=== PATIENT | female | born 1980 | race Caucasian/White ===

== ENCOUNTER 2019-11-15 09:00 | Emergency (ER) | payer OTHER, SELFPAY ==
[2019-11-15 09:03] VITALS: BP 147/77; PULSE 86; RESP 22; TEMP 36.8; O2SAT 98; BMI 32.3
--- NOTE | 2019-11-15 09:18 | ED_ITS ---
Entered by Mahendra Stewart, acting as scribe for HPI - Chest Pain General: Chief Complaint: Chest Pain Stated Complaint: chest pain Time Seen by Provider: 11/15/19 10:04 History of Present Illness: HPI narrative: 39 yo female presents with complaints of a violent cough and chest pain that began today. Family states patient has had an intermittent cough over the past month but states nothing has ever been this severe. Reports she will cough so hard that she turns red and feels like she is going to vomit. Patient is not running fevers. She occasionally will cough up a yellow sometimes blood-tinged sputum. Patient has no previous pulmonary or cardiac history. Associated symptoms: Reports dyspnea; Deny abdominal pain, fever(s), nausea, palpitations, syncope or vomiting Review of Systems Const: Denies: fever, chills, body aches or fatigue Eyes: Denies: change in vision, blurry vision, photophobia, eye discomfort or eye discharge ENMT: Denies: throat pain, enlarged tonsils, painful swallowing, swelling of lips/tongue, oral sores/lesions, ear pain, ear discharge, nasal discharge, nasal congestion, post nasal drip or facial/sinus pain Card: Reports: chest pain; Denies: palpitations, irregular heart rhythm, edema, swelling of feet/ankles, lightheadedness, syncope, pre-syncope or shortness of breath when lying down Resp: Reports: shortness of breath, productive cough, pain on inspiration and chest congestion; Denies: non-productive cough, wheezing, stridor or coughing up blood GI: Denies: abdominal pain, nausea or vomiting Musc: Denies: neck pain or back pain Skin/Breast: Denies: rash Neuro: Denies: headache, numbness in extremities, weakness in extremities or changes in sensation All/Imm: Denies: facial swelling or seasonal allergies PFSH ED PFSH: Statuses (acute, chronic, etc) shown below reflect problem list status as previously entered and may not be historically accurate Social History Smoking and tobacco status: current every day smoker Female Reproductive History: Date of last menstrual period: 10/18/19 Physical Exam 2 Const: COMMON NORMALS: no apparent distress, oriented x3, no limitations, healthy appearing, alert and well nourished HENMT: COMMON NORMALS: normocephalic and head/scalp atraumatic HEAD & SCALP: normocephalic and atraumatic Eye: COMMON NORMALS: PERRL and EOMs intact bilaterally PUPIL: Yes PERRL Neck/C-Spine: COMMON NORMALS: full ROM, no lymphadenopathy, supple and no meningeal signs Chest: COMMONS NORMALS: inspection of chest normal Resp: COMMON NORMALS: normal respiratory effort and clear to auscultation bilaterally AUSCULTATION: clear to auscultation bilaterally OTHER: forceful sounding cough Cardio: COMMON NORMALS: regular rate and regular rhythm RATE: regular rate RHYTHM: regular rhythm GI: COMMON NORMALS: normal to inspection, nondistended, normoactive bowel sounds, soft to palpation, non-tender, no hepatosplenomegaly and no masses PALPATION: Yes soft and Yes no hepatosplenomegaly : COMMON NORMALS: Yes no CVA tenderness BLADDER/KIDNEY EXAM: Yes no CVA tenderness Back/Pelvis: COMMON NORMALS: no CVA tenderness and thoracic and lumbar spine normal to inspection Extremity: COMMON NORMALS: normal to inspection Neuro: COMMON NORMALS: oriented x3 SENSORIUM/ORIENTATION: Yes alert MENINGEAL SIGNS: Yes no meningeal signs Skin: COMMON NORMALS: no rashes or lesions noted GENERAL SKIN EXAM: no rashes or lesions noted Course Vital Signs: Vital signs: Vital Signs Temperature 98.2 F 11/15/19 09:03 Pulse Rate 79 11/15/19 10:52 Respiratory Rate 16 11/15/19 10:46 Blood Pressure 147/77 11/15/19 09:03 Pulse Oximetry 96 11/15/19 10:46 MDM - Chest Pain MDM Narrative: Medical decision making narrative: Patient reports feeling better after breathing treatment and cough medication; reports she has not been coughing since; labs, CXR, EKG all look okay; will treat patient for probable bronchitis Lab Data: Labs: Lab Results 11/15/19 11/15/19 11/15/19 Range/Units 10:15 10:15 10:15 WBC 14.5 H (4.0-10.0) 10^3/ uL RBC 4.98 (4.1-5.3) 10^6/u L Hgb 13.7 (11.5-15.3) g/dL Hct 42.4 (37.0-47.0) % MCV 85.1 (81-99) fL MCH 27.5 L (28.0-34.0) pg MCHC 32.3 (30.0-36.0) g/dL RDW 13.2 (12.1-15.1) % Plt Count 303 (130-400) 10^3/c mm MPV 10.4 (7.4-10.4) fL Neut % (Auto) 71.0 % Lymph % (Auto) 19.1 % [place] % (Auto) 8.0 % Eos % (Auto) 0.8 % Baso % (Auto) 0.6 % Neut # (Auto) 10.3 H (1.8-7.7) 10^3/u L Lymph # (Auto) 2.8 (0.8-4.8) 10^3/u L [place] # (Auto) 1.2 H (0.2-0.9) 10^3/u L Eos # (Auto) 0.1 (0.0-0.8) 10^3/u L Baso # (Auto) 0.1 (0.0-0.1) 10^3/u L Nucleated RBC % (a uto) 0 % Nucleated RBCs # 0.0 /100WBC Sodium 136 (136-145) mmol/L Potassium 4.3 (3.5-5.1) mmol/L Chloride 100 (98-107) mmol/L Carbon Dioxide 21 L (22-29) mmol/L Anion Gap 19.3 H (5-19) BUN 13 (6-20) mg/dL Creatinine 0.7 (0.5-0.9) mg/dL GFR Calculation 92.7 (90-130) mL/min Glucose 102 (74-109) mg/dL Calcium 9.6 (8.5-10.5) mg/dL Total Bilirubin 0.2 (0.15-1.2) mg/dL AST 22 (0-32) U/L ALT 26 (0-33) U/L Alkaline Phosphata se 91 (35-105) IU/L Troponin T Baselin e 7 (0-10) ng/mL Total Protein 7.5 (6.6-8.7) g/dL Albumin 4.0 (3.5-5.2) g/dL Globulin 3.5 (1.3-4.6) g/dL Imaging Data^: CXR: Radiologist's impression: [address] [address] XRay Report Signed Patient: Janene Polo Unit #: [id number] : [id number] Age/Sex: 39 / F ADM Date: 11/15/19 Loc: ER Room/Bed: Attending Dr: Ordering Provider/Ordering MD: Carol Rosas Date of Service: 11/15/19 Procedure(s): XR chest 1V portable [id number] Accession Number(s): [id number] Report Number: [id number] PROCEDURE INFORMATION: Exam: XR Chest, 1 View Exam date and time: 11/15/2019 10:36 AM Age: 39 years old Clinical indication: Cough/congestion x 1 month TECHNIQUE: Imaging protocol: XR of the chest Views: 1 view. COMPARISON: CR Chest 1 [place] [id number] 08/09/2019 7:04 PM FINDINGS: Lungs: No focal peripheral lung consolidation, air bronchogram formation, or silhouette sign. Pleural space: No pleural effusion or pneumothorax. Heart/Mediastinum: The cardiac silhouette is not enlarged. The mediastinal contours are normal. Bones/joints: Mild curvature of the thoracic spine convex to the right. XR/XR chest 1V portable [id number] IMPRESSION: No pneumonia. Dictated By: Mau Shah Signed By: Mau Shah Signed Date/Time: 11/15/19 1109 DD/ 1107 EKG Data^: EKG 1: EKG interpretation date: 11/15/19 EKG interpretation time: 09:24 Interpretation: Sinus bradycardia Rate [address] elevation or depression noted Discharge Plan Discharge Patient Disposition: Home, Self-Care Clinical Impression: Bronchitis Condition: Stable Prescriptions: New vvlxmtqpixdx-iqtmwkzgc-qrgfvli 6.25-5-10 mg/5 mL syrup 5 ml PO Q4H PRN (Reason: cough) Qty: 118 RF: 0 prednisone 10 mg tablet 60 mg PO DAILY 5 Days Qty: 30 RF: 0 doxycycline monohydrate 100 mg capsule 100 mg PO BID 7 Days Qty: 14 RF: 0 albuterol sulfate 90 mcg/actuation HFA aerosol inhaler 2 inh INHALATION Q6H PRN (Reason: shortness of breath or wheezing) Qty: 6.7 RF: 0 No Action Multiple Vitamins Tablet 1 tab PO DAILY RF: 0 lisinopril-hydrochlorothiazide 20-12.5 mg tablet 1 tab PO DAILY RF: 0 Celexa 20 mg Tablet 20 mg PO DAILY RF: 0 Hair,Skin and Nails Tablet 2 tab PO DAILY RF: 0 Discharge Orders: Discharge Order (Routine); Ordered 11/15/19 Ordered By: Carol Rosas Referrals: Carolin Vasquez DO [Primary Care Provider] - Discharge Diet: Usual diet Discharge Activity: Increase activity as tolerated Activity Restrictions/Additional Instructions: Follow-up with primary care in 3 to 5 days for continued symptoms. You may return to the emergency department at any given time for worsening symptoms or new concerning symptoms. Coding Level of Care Code ED Child Adolescent Psychiatrist for Chg Fwd Exam Problem Focused The documentation recorded by the Terry stephens Kialy, accurately reflects the service I personally performed and the decisions made by , Carol Rosas PA Nov 15, 2019 09:00
--- NOTE | 2019-11-15 10:03 | XRR_ITS ---
PROCEDURE INFORMATION: Exam: XR Chest, 1 View Exam date and time: 11/15/2019 10:36 AM Age: 39 years old Clinical indication: Cough/congestion x 1 month TECHNIQUE: Imaging protocol: XR of the chest Views: 1 view. COMPARISON: CR Chest 1 [place] [id number] 08/09/2019 7:04 PM FINDINGS: Lungs: No focal peripheral lung consolidation, air bronchogram formation, or silhouette sign. Pleural space: No pleural effusion or pneumothorax. Heart/Mediastinum: The cardiac silhouette is not enlarged. The mediastinal contours are normal. Bones/joints: Mild curvature of the thoracic spine convex to the right. XR/XR chest 1V portable [id number] IMPRESSION: No pneumonia.
[2019-11-15 10:20] LABS: Basophils # 0.1 10^3/uL (0.0-0.1); Basophils % 0.6 %; Eosinophils # 0.1 10^3/uL (0.0-0.8); Eosinophils % 0.8 %; Hematocrit 42.4 % (37.0-47.0); Hemoglobin 13.7 g/dL (11.5-15.3); Lymphocytes # 2.8 10^3/uL (0.8-4.8); Lymphocytes % 19.1 %; Mean Corpuscular HGB Conc 32.3 g/dL (30.0-36.0); Mean Corpuscular Hemoglobin 27.5 pg (28.0-34.0); Mean Corpuscular Volume 85.1 fL (81-99); Mean Platelet Volume 10.4 fL (7.4-10.4); Monocytes # 1.2 10^3/uL (0.2-0.9); Neutrophils # 10.3 10^3/uL (1.8-7.7); Nucleated Red Blood Cells % 0 %; Platelet Count 303 10^3/cmm (130-400); Red Blood Count 4.98 10^6/uL (4.1-5.3); Red Cell Distribution Width 13.2 % (12.1-15.1); White Blood Count 14.5 10^3/uL (4.0-10.0)
[2019-11-15] MEDS: promethazine-cod syrup 6.25-10mg/5 mL UDC PO (10:35)
[2019-11-15 10:37] LABS: Alanine Aminotransferase 26 U/L (0-33); Alkaline Phosphatase 91 IU/L (35-105); Anion Gap 19.3 (5-19); Aspartate Amino Transferase 22 U/L (0-32); Blood Urea Nitrogen 13 mg/dL (6-20); Calcium 9.6 mg/dL (8.5-10.5); Carbon Dioxide 21 mmol/L (22-29); Chloride 100 mmol/L (98-107); Creatinine Clr Calc Pharmacy 121.2046; Globulin 3.5 g/dL (1.3-4.6); Glomerular Filtration Rate 92.7 mL/min (90-130); Glucose 102 mg/dL (74-109); Potassium 4.3 mmol/L (3.5-5.1); Sodium 136 mmol/L (136-145); Total Bilirubin 0.2 mg/dL (0.15-1.2); Total Protein 7.5 g/dL (6.6-8.7)
[2019-11-15 10:41] LABS: Troponin(5th) Baseline 7 ng/mL (0-10)
[2019-11-15 10:46] VITALS: PULSE 70; RESP 16; O2SAT 96
[2019-11-15] MEDS: ipratropium-albuterol 3 mL Neb INHALATION (10:49)
[2019-11-15 10:52] VITALS: PULSE 79
[2019-11-15 12:19] LABS: Troponin 5 2HR 6.78 ng/mL (0-10)
[2019-11-15 12:22] LABS: Troponin 5 2HR Delta -0.22 ABS# (0-10)
[2019-11-15 12:28] VITALS: BP 101/61; PULSE 78; RESP 18; O2SAT 95
--- NOTE | 2019-11-15 16:04 | ECG_ITS ---
Measurements Intervals [place] Rate: 59 P: 65 AL: 140 QRS: 64 QRSD: 84 T: 40 QT: 336 QTc: 334 SINUS BRADYCARDIA WITH FREQUENT SUPRAVENTRICULAR PREMATURE COMPLEXES LOW QRS VOLTAGE IN PRECORDIAL LEADS [QRS DEFLECTION < 1.0 mV IN CHEST LEADS] ABNORMAL RHYTHM ECG WARNING: DATA QUALITY MAY AFFECT INTERPRETATION Compared to ECG 08/09/2019 20:05:38 Low QRS voltage now present Sinus rhythm no longer present T-wave abnormality no longer present Electronically Signed On 11-15-2019 18:37:07 [employer]OPE PATTERN[employer] by Yuko Haynes M.D. [email or web address]
== END 2019-11-15 12:29 | disposition home or self-care (01) ==
PROVIDERS: Emergency Provider Physician Assistant; Family Provider Family Medicine; PCP Family Medicine
DX: J40 Bronchitis, not specified as acute or chronic (principal); F17.210 Nicotine dependence, cigarettes, uncomplicated
CPT/HCPCS: 36415; 71045; 80053; 84484; 85025; 93005; 94640; 99281; 99283

== ENCOUNTER → 2019-12-18 09:11 | Outpatient (BNVA) | payer OTHER, SELFPAY | PROVIDERS: Family Provider Family Medicine; PCP Family Medicine; Visit Provider Family Medicine | DX: I10 Essential (primary) hypertension (principal); R63.5 Abnormal weight gain; F17.219 Nicotine dependence, cigarettes, with unspecified nicotine-induced disorders | CPT/HCPCS: 84443 ==

== ENCOUNTER → 2020-01-23 11:55 | Outpatient (BNVA) | payer OTHER, SELFPAY | PROVIDERS: Family Provider Family Medicine; PCP Family Medicine; Visit Provider Family Medicine | DX: R05 Cough (principal); R50.9 Fever, unspecified | CPT/HCPCS: 87400; 87635 ==

== ENCOUNTER 2020-03-12 13:18 | Emergency (ER) | payer OTHER, SELFPAY ==
[2020-03-12 13:43] VITALS: BP 134/89; PULSE 76; RESP 16; TEMP 36.6; O2SAT 98; BMI 36.6
--- NOTE | 2020-03-12 14:21 | W.ED.FEMALGU ---
HPI - Female Genitourinary General: Chief complaint: Vaginal Bleeding Stated complaint: back pain Time Seen by Provider: 03/12/20 14:12 Source: patient Mode of arrival: ambulatory Limitations: no limitations History of Present Illness: HPI Narrative: 39-year-old female has a history of irregular. States that she has had a very heavy period over the last 2 days. She states she has severe abdominal cramping along with vaginal bleeding. She denies any worsening or improving factors. MD elicited complaint: vaginal bleeding Onset (ago): day(s) Severity: moderate Quality of pain: cramping Vaginal bleeding: moderate Exacerbating factors: none Relieving factors: none Associated symptoms: Reports abdominal pain; Deny headache(s) Date of Last Menstrual Period: 03/12/20 Review of Systems Const: Denies: fever(s), chills, body aches or change in appetite Eyes: Denies: blurry vision or eye discomfort ENMT: Denies: throat pain or dental pain Card: Denies: chest pain Resp: Denies: dyspnea GI: Reports: abdominal pain : Reports: vaginal bleeding Musc: Denies: neck pain or back pain Skin/Breast: Denies: rash Neuro: Denies: headache(s) Psych: Denies: depression Navid/Lymph: Denies: easy bruising All/Imm: Denies: urticaria PFSH ED PFSH: Medical History Essential hypertension LYNN (generalized anxiety disorder) GERD (gastroesophageal reflux disease) Surgical History History of bunionectomy History of cholecystectomy Family History Other Cancer Hypertension Social History Smoking and tobacco status: current every day smoker cigarettes Packs smoked per day: 0.5 Alcohol intake: current Alcohol intake frequency: few times a month Female Reproductive History: Date of last menstrual period: 03/12/20 Physical Exam Const: COMMON NORMALS: no acute distress, patient oriented x3 and healthy appearing HENMT: COMMON NORMALS: normocephalic and atraumatic HEAD & SCALP: normocephalic and atraumatic Eye: COMMON NORMALS: Equal, round and reactive pupils present and EOMs intact bilaterally PUPIL: Yes Equal, round and reactive pupils present Neck/C-Spine: COMMON NORMALS: full ROM and supple Chest: COMMONS NORMALS: normal inspection of the chest and normal palpation of entire chest wall Resp: COMMON NORMALS: normal respiratory effort, No retractions, No use of accessory muscles and clear to auscultation bilaterally AUSCULTATION: clear to auscultation bilaterally Cardio: COMMON NORMALS: regular rate, regular rhythm and No murmurs present (Cardio) RATE: regular rate RHYTHM: regular rhythm GI: COMMON NORMALS: Normal to inspection, nondistended, normoactive bowel sounds present, Soft to palpation, non-tender and no masses PALPATION: Yes Soft to palpation Extremity: COMMON NORMALS: normal to inspection and full ROM Neuro: COMMON NORMALS: patient oriented x3, moves all extremities and no focal motor deficits Psych: COMMON NORMALS: mental status grossly normal, Normal thought process present and cooperative THOUGHT PROCESS: Normal thought process present Skin: COMMON NORMALS: no rashes or lesions noted and no wounds GENERAL SKIN EXAM: no rashes or lesions noted Course Vital Signs: Vital signs: Vital Signs Temperature 97.9 F 03/12/20 13:43 Pulse Rate 76 03/12/20 13:43 Respiratory Rate 16 03/12/20 13:43 Blood Pressure 134/89 03/12/20 13:43 Pulse Oximetry 98 03/12/20 13:43 MDM - Female MDM Narrative: Medical decision making narrative: Lon presents here with vaginal bleeding. Patient's hemoglobin and lab work here are normal. Patient's pain is much improved. She is stable for discharge and is to follow-up with her primary care doctor in 3 to 5 days return if worsening. Lab Data: Labs: Lab Results 03/12/20 03/12/20 03/12/20 Range/Units 14:36 14:36 14:40 WBC 9.5 (4.0-10.0) 10^3/ uL RBC 4.62 (4.1-5.3) 10^6/u L Hgb 12.9 (11.5-15.3) g/dL Hct 41.8 (37.0-47.0) % MCV 90.5 (81-99) fL MCH 27.9 L (28.0-34.0) pg MCHC 30.9 (30.0-36.0) g/dL RDW 12.4 (12.1-15.1) % Plt Count 312 (130-400) 10^3/c mm MPV 10.5 H (7.4-10.4) fL Neut % (Auto) 52.5 % Lymph % (Auto) 35.1 % [place] % (Auto) 9.3 % Eos % (Auto) 2.1 % Baso % (Auto) 0.8 % Neut # (Auto) 5.0 (1.8-7.7) 10^3/u L Lymph # (Auto) 3.3 (0.8-4.8) 10^3/u L [place] # (Auto) 0.9 (0.2-0.9) 10^3/u L Eos # (Auto) 0.2 (0.0-0.8) 10^3/u L Baso # (Auto) 0.1 (0.0-0.1) 10^3/u L Nucleated RBC % (a uto) 0 % Nucleated RBCs # 0.0 /100WBC Sodium (136-145) mmol/L Potassium (3.5-5.1) mmol/L Chloride (98-107) mmol/L Carbon Dioxide (22-29) mmol/L Anion Gap (5-19) BUN (6-20) mg/dL Creatinine (0.5-0.9) mg/dL GFR Calculation (90-130) mL/min Glucose (65-115) mg/dL Calculated Osmolal ity (285-295) mOsm/k g Calcium (8.5-10.5) mg/dL Total Bilirubin (0.15-1.2) mg/dL AST (0-32) U/L ALT (0-33) U/L Alkaline Phosphata se (35-105) IU/L Total Protein (6.6-8.7) g/dL Albumin (3.5-5.2) g/dL Globulin (1.3-4.6) g/dL HCG, Qual Negative (Negative) Urine Color Yellow (Yellow) Urine Appearance Clear (CLEAR) Urine pH 7 (5-7) Ur Specific Gravit y 1.010 (1.005-1.030) Urine Protein Neg (Negative) Urine Glucose (UA) Norm (Normal) Urine Ketones Negative (Negative) Urine Blood 2+ H (Negative) Urine Nitrate Negative (Negative) Urine Bilirubin Neg (NEGATIVE) Urine Urobilinogen Norm (Negative) mg/dL Ur Leukocyte Flori ase Negative (Negative) Urine RBC 0-4 H (0-2) /hpf Urine WBC None (0-5) /hpf Ur Squamous Epith Cells 5-10 H (0-5) Urine Bacteria Trace (NONE) 03/12/20 Range/Units 14:40 WBC (4.0-10.0) 10^3/ uL RBC (4.1-5.3) 10^6/u L Hgb (11.5-15.3) g/dL Hct (37.0-47.0) % MCV (81-99) fL MCH (28.0-34.0) pg MCHC (30.0-36.0) g/dL RDW (12.1-15.1) % Plt Count (130-400) 10^3/c mm MPV (7.4-10.4) fL Neut % (Auto) % Lymph % (Auto) % [place] % (Auto) % Eos % (Auto) % Baso % (Auto) % Neut # (Auto) (1.8-7.7) 10^3/u L Lymph # (Auto) (0.8-4.8) 10^3/u L [place] # (Auto) (0.2-0.9) 10^3/u L Eos # (Auto) (0.0-0.8) 10^3/u L Baso # (Auto) (0.0-0.1) 10^3/u L Nucleated RBC % (a uto) % Nucleated RBCs # /100WBC Sodium 138 (136-145) mmol/L Potassium 3.7 (3.5-5.1) mmol/L Chloride 100 (98-107) mmol/L Carbon Dioxide 28 (22-29) mmol/L Anion Gap 13.7 (5-19) BUN 14 (6-20) mg/dL Creatinine 0.6 (0.5-0.9) mg/dL GFR Calculation 110.7 (90-130) mL/min Glucose 96 (65-115) mg/dL Calculated Osmolal ity 282 L (285-295) mOsm/k g Calcium 8.9 (8.5-10.5) mg/dL Total Bilirubin 0.2 (0.15-1.2) mg/dL AST 18 (0-32) U/L ALT 17 (0-33) U/L Alkaline Phosphata se 89 (35-105) IU/L Total Protein 6.8 (6.6-8.7) g/dL Albumin 4.2 (3.5-5.2) g/dL Globulin 2.6 (1.3-4.6) g/dL HCG, Qual (Negative) Urine Color (Yellow) Urine Appearance (CLEAR) Urine pH (5-7) Ur Specific Gravit y (1.005-1.030) Urine Protein (Negative) Urine Glucose (UA) (Normal) Urine Ketones (Negative) Urine Blood (Negative) Urine Nitrate (Negative) Urine Bilirubin (NEGATIVE) Urine Urobilinogen (Negative) mg/dL Ur Leukocyte Flori ase (Negative) Urine RBC (0-2) /hpf Urine WBC (0-5) /hpf Ur Squamous Epith Cells (0-5) Urine Bacteria (NONE) Discharge Plan Discharge Patient Disposition: Home, Self-Care Clinical Impression: Dysfunctional uterine bleeding Condition: Stable Prescriptions: No Action losartan 50 mg tablet 50 mg PO DAILY Qty: 30 RF: 0 esomeprazole magnesium [Nexium] 40 mg capsule,delayed release(DR/EC) 40 mg PO DAILY 30 Days Qty: 30 RF: 0 Symbicort 160-4.5 mcg/actuation HFA aerosol inhaler 2 puff INHALATION BID Qty: 10.2 RF: 0 hydrochlorothiazide 12.5 mg tablet 12.5 mg PO QAM Qty: 30 RF: 1 Celexa 20 mg tablet 20 mg PO DAILY Qty: 90 RF: 0 Midol 500-25 mg Tablet 2 tab PO PRN RF: 0 ibuprofen 200 mg Tablet 400 mg PO PRN RF: 0 Discharge Orders: Discharge Order (Routine); Ordered 03/12/20 Ordered By: Bharathi Sheridan Referrals: Carolin Vasquez DO [Primary Care Provider] - 1-3 days Discharge Diet: Advance as tolerated Discharge Activity: Resume usual activity Patient Instructions: Menstruation (ED) Coding Level of Care Code ED [employer] Maker for Chg Fwd Exam Comprehensive
[2020-03-12] MEDS: sodium chloride 0.9% 1,000 ML 999 ML IV (14:26)
[2020-03-12] MEDS: diphenhydrAMINE 50 mg/mL SDV 1mL IVP (14:28)
[2020-03-12] MEDS: ketorolac 30 mg/mL INJ IVP (14:29)
[2020-03-12] MEDS: metoclopramide 5 mg/mL SDV 2 mL 10 MG IVP (14:29)
[2020-03-12 14:46] LABS: Basophils # 0.1 10^3/uL (0.0-0.1); Basophils % 0.8 %; Eosinophils # 0.2 10^3/uL (0.0-0.8); Eosinophils % 2.1 %; Hematocrit 41.8 % (37.0-47.0); Hemoglobin 12.9 g/dL (11.5-15.3); Lymphocytes # 3.3 10^3/uL (0.8-4.8); Lymphocytes % 35.1 %; Mean Corpuscular HGB Conc 30.9 g/dL (30.0-36.0); Mean Corpuscular Hemoglobin 27.9 pg (28.0-34.0); Mean Corpuscular Volume 90.5 fL (81-99); Mean Platelet Volume 10.5 fL (7.4-10.4); Monocytes # 0.9 10^3/uL (0.2-0.9); Monocytes % 9.3 %; Neutrophils % 52.5 %; Nucleated Red Blood Cells % 0 %; Platelet Count 312 10^3/cmm (130-400); Red Blood Count 4.62 10^6/uL (4.1-5.3); Red Cell Distribution Width 12.4 % (12.1-15.1); White Blood Count 9.5 10^3/uL (4.0-10.0)
[2020-03-12 14:46] LABS: HCG Qualitative Urine. Negative (Negative)
--- NOTE | 2020-03-12 14:56 | PC.NURSE ---
Rounded on pt, pt reports feeling better, states her back pain is better.
[2020-03-12 14:59] LABS: Add Urine Microscopic? YES; Bilirubin Urine Neg (NEGATIVE); Blood Urine 2+ (Negative); Glucose Urine UA Norm (Normal); Ketones Urine Negative (Negative); Leukocyte Esterase Urine Negative (Negative); Nitrate Urine Negative (Negative); Protein Urine Neg (Negative); Urine Appearance Clear (CLEAR); Urine Color Yellow (Yellow); Urobilinogen Urine Norm (Negative); pH Urine 7 (5-7)
[2020-03-12 14:59] LABS: Alanine Aminotransferase 17 U/L (0-33); Albumin Level 4.2 g/dL (3.5-5.2); Alkaline Phosphatase 89 IU/L (35-105); Anion Gap 13.7 (5-19); Aspartate Amino Transferase 18 U/L (0-32); Blood Urea Nitrogen 14 mg/dL (6-20); Calcium 8.9 mg/dL (8.5-10.5); Carbon Dioxide 28 mmol/L (22-29); Chloride 100 mmol/L (98-107); Globulin 2.6 g/dL (1.3-4.6); Glomerular Filtration Rate 110.7 mL/min (90-130); Glucose 96 mg/dL (65-115); Osmolality Calculated 282 mOsm/kg (285-295); Potassium 3.7 mmol/L (3.5-5.1); Sodium 138 mmol/L (136-145); Total Bilirubin 0.2 mg/dL (0.15-1.2); Total Protein 6.8 g/dL (6.6-8.7)
[2020-03-12 15:01] LABS: Add Urine Culture? No; Bacteria Urine TRACE; RBC Urine 0-4 /hpf (0-2)
[2020-03-12 15:31] VITALS: RESP 16
== END 2020-03-12 15:32 | disposition home or self-care (01) ==
PROVIDERS: Emergency Provider Emergency Medicine; Family Provider Family Medicine; PCP Family Medicine
DX: N93.8 Other specified abnormal uterine and vaginal bleeding (principal); I10 Essential (primary) hypertension; F17.210 Nicotine dependence, cigarettes, uncomplicated
CPT/HCPCS: 12345; 36415; 80053; 81001; 81025; 85025; 96360; 96361; 96374; 96375; 99283; J1200; J1885; J2765; J7030

== ENCOUNTER 2020-04-21 14:35 | Emergency (ER) | payer OTHER, SELFPAY ==
[2020-04-21 14:47] VITALS: BP 119/65; PULSE 80; RESP 16; TEMP 36.7; O2SAT 97; BMI 34.7
--- NOTE | 2020-04-21 15:03 | ED_ITS ---
HPI - Extremity Problem General: Chief complaint: Extremity Problem,Nontraumatic Stated complaint: R arm pain/tingling Time Seen by Provider: 04/21/20 15:03 History of Present Illness: HPI Narrative: Patient is a 39-year-old female comes to the ED with right upper extremity pain. Patient says pain started about 4 days ago was described as sharp tingling pain that starts from her hand and then shoots up her arm. Denies any weakness or loss of sensation to right arm. Denies any injury or accident or trauma to arm to cause pain. Patient states she does work a job where she uses her hands a lot. Associated symptoms: Deny chest pain, fever(s) or rash Review of Systems Const: Denies: fever(s), chills or fatigue Eyes: Denies: change in vision or eye discomfort ENMT: Denies: throat pain, odynophagia, nasal discharge or nasal congestion Card: Denies: chest pain, palpitations, edema, swelling of feet/ankles, dyspnea on exertion or orthopnea Resp: Denies: dyspnea, productive cough or non-productive cough GI: Denies: abdominal pain, nausea, vomiting, diarrhea, constipation or hematochezia : Denies: flank pain, dysuria or hematuria Musc: Reports: extremity pain (right arm); Denies: neck pain, back pain or extremity swelling Skin/Breast: Denies: rash or new lesions Neuro: Denies: headache(s), numbness in extremities or weakness in extremities [facility] ED PFSH: Medical History Essential hypertension LYNN (generalized anxiety disorder) GERD (gastroesophageal reflux disease) Surgical History History of bunionectomy History of cholecystectomy Family History Other Cancer Hypertension Social History Smoking and tobacco status: current every day smoker cigarettes Packs smoked per day: 0.5 Alcohol intake: current Alcohol intake frequency: few times a month Substance/Drug Use: never Female Reproductive History: Date of last menstrual period: 04/07/20 Physical Exam Const: COMMON NORMALS: patient oriented x3 HENMT: COMMON NORMALS: normocephalic HEAD & SCALP: normocephalic MOUTH: Normal oral and palatal mucosa present THROAT: posterior oropharynx normal and uvula midline Neck/C-Spine: COMMON NORMALS: supple GENERAL: Yes normal visual inspection Resp: COMMON NORMALS: normal respiratory effort, No retractions, No use of accessory muscles and clear to auscultation bilaterally AUSCULTATION: clear to auscultation bilaterally Cardio: COMMON NORMALS: regular rate, regular rhythm, S1 normal heart sound present, S2 normal heart sound present, No gallops present (Cardio), No clicks present (Cardio), No murmurs present (Cardio) and Peripheral pulses 2+ throughout RATE: regular rate RHYTHM: regular rhythm HEART SOUNDS: S1 normal heart sound present and S2 normal heart sound present PERIPHERAL PULSES: Peripheral pulses 2+ throughout GI: COMMON NORMALS: Normal to inspection, nondistended, normoactive bowel sounds present, Soft to palpation, non-tender and no masses PALPATION: Yes Soft to palpation : COMMON NORMALS: Yes no CVA tenderness BLADDER/KIDNEY EXAM: Yes no CVA tenderness Back/Pelvis: COMMON NORMALS: no CVA tenderness Extremity: RIGHT UPPER EXTREMITY: Yes wrist Right wrist: Yes inspection (Unremarkable, no erythema, swelling or warmth.), Yes ROM (full), Yes neurovascular exam (intact) and Yes special tests Right wrist special tests: Tinel's test: Positive and Phalen's test: Positive Neuro: COMMON NORMALS: patient oriented x3 and moves all extremities Course Vital Signs: Vital signs: Vital Signs Temperature 98.0 F 04/21/20 14:47 Pulse Rate 76 04/21/20 16:26 Respiratory Rate 17 04/21/20 16:26 Blood Pressure 148/65 04/21/20 16:26 Pulse Oximetry 98 04/21/20 16:26 MDM - Extremity (Nontraumatic) MDM Narrative: Medical decision making narrative: Patient is a 39-year-old female comes ED with right arm pain. Pain is sharp and tingling sensation that shoots from her wrist area up into her upper arm. Physical exam showed a positive Jose and Tinel's test. Patient diagnosed with carpal tunnel syndrome. I placed an order with case management for patient to see Ortho. Patient was put in a Velcro wrist splint and given a shot of Decadron while here on the unit. She was also sent home with a prescription for prednisone and told to take ibuprofen and ice wrist to help with pain as well. Patient understood and agreed with plan. Discharge Plan Discharge Patient Disposition: Home, Self-Care Clinical Impression: Carpal tunnel syndrome of right wrist Condition: Stable Prescriptions: New prednisone 20 mg tablet 20 mg PO TID 5 Days Qty: 15 RF: 0 No Action Symbicort 160-4.5 mcg/actuation HFA aerosol inhaler 2 puff INHALATION BID Qty: 10.2 RF: 0 Celexa 20 mg tablet 20 mg PO DAILY Qty: 90 RF: 1 esomeprazole magnesium [Nexium] 40 mg capsule,delayed release(DR/EC) 40 mg PO DAILY 90 Days Qty: 90 RF: 1 hydrochlorothiazide 12.5 mg tablet 12.5 mg PO QAM Qty: 90 RF: 1 losartan 50 mg tablet 50 mg PO DAILY Qty: 90 RF: 1 Discharge Orders: Discharge Order (Routine); Ordered 04/21/20 Ordered By: Pastor Hurt Referrals: Carolin Vasquez DO [Primary Care Provider] - Discharge Diet: Regular Discharge Activity: Increase activity as tolerated Patient Instructions: Carpal Tunnel Syndrome Exercises (GEN), Carpal Tunnel Syndrome (ED) Activity Restrictions/Additional Instructions: Follow-up with medical provider as directed. Case management or orthopedic clinic should be contacting you in the next several days to set up an appointment. Take prednisone medication as prescribed. You can also take ibuprofen to help with pain and inflammation as well. You can apply ice/cold pack on wrist to help with symptoms. Also he can wear a Velcro wrist splint as needed to help with symptoms to. Return to the ER or your medical provider if condition worsens. Please read and understand discharge instructions. If any questions, please ask. Discharge Date/Time: 04/21/20 16:34 Coding Level of Care Code ED Psychiatric Orderly for Handy Fwd Exam Comprehensive
[2020-04-21] MEDS: dexamethasone 10 mg/mL INJ IM (15:45)
[2020-04-21] MEDS: HYDROcodone-acetaminophen 7.5-325 mg Tablet 1 TAB PO (15:45)
[2020-04-21 16:26] VITALS: BP 148/65; PULSE 76; RESP 17; O2SAT 98
--- NOTE | 2020-04-22 09:52 | DCPLANNER ---
rn manager had message to schedule a follow up appointment for patient with ortho. rn manager called the ortho clinic, spoke with Pat, gave clinic patients information. rn manager was told that patients information would be printed and reviewed. Clinic will call patient with appointment information.
--- NOTE | 2020-04-23 08:29 | DCPLANNER ---
Patient has a follow up appointment scheduled for , May 02, [address] at 9:[address] Dozier. Clinic will call patient with appointment information.
--- NOTE | 2020-05-03 14:05 | DCPLANNER ---
Patient did not attend appointment scheduled for 05.02.20 with ortho.
== END 2020-04-21 16:34 | disposition home or self-care (01) ==
PROVIDERS: Emergency Provider Physician Assistant; PCP Family Medicine
DX: G56.01 Carpal tunnel syndrome, right upper limb (principal); I10 Essential (primary) hypertension; F17.210 Nicotine dependence, cigarettes, uncomplicated
CPT/HCPCS: 12345; 29125; 96372; 99281; 99283; J1100

== ENCOUNTER 2021-02-20 19:19 | Emergency (ER) | payer SELFPAY ==
[2021-02-20 19:33] VITALS: BP 140/94; PULSE 79; RESP 16; TEMP 36.8; O2SAT 99; BMI 35.2
--- NOTE | 2021-02-20 19:46 | XRR_ITS ---
PROCEDURE INFORMATION: Exam: XR Chest Exam date and time: 02/20/2021 8:05 PM Age: 40 years old Clinical indication: Chest pain; Additional info: Cp TECHNIQUE: Imaging protocol: XR of the chest. Views: 1 view. COMPARISON: CR XR chest 1V portable [id number] 11/15/2019 10:29 AM FINDINGS: Lungs: Unremarkable. No consolidation. Pleural spaces: Unremarkable. No pleural effusion. No pneumothorax. Heart/Mediastinum: Unremarkable. No cardiomegaly. Bones/joints: Unremarkable. XR/XR chest 1V portable [id number] IMPRESSION: No acute findings.
[2021-02-20 20:13] LABS: Basophils # 0.1 10^3/uL (0.0-0.1); Basophils % 0.7 %; Eosinophils # 0.2 10^3/uL (0.0-0.8); Eosinophils % 2.6 %; Hematocrit 43.3 % (37.0-47.0); Hemoglobin 14.1 g/dL (11.5-15.3); Lymphocytes # 2.4 10^3/uL (0.8-4.8); Lymphocytes % 25.1 %; Mean Corpuscular HGB Conc 32.6 g/dL (30.0-36.0); Mean Corpuscular Hemoglobin 28.4 pg (28.0-34.0); Mean Corpuscular Volume 87.3 fL (81-99); Mean Platelet Volume 10.7 fL (7.4-10.4); Monocytes # 1.2 10^3/uL (0.2-0.9); Monocytes % 12.2 %; Neutrophils # 5.56 10^3/uL (1.8-7.7); Neutrophils % 59.2 %; Nucleated Red Blood Cells % 0 %; Platelet Count 291 10^3/cmm (130-400); Red Blood Count 4.96 10^6/uL (4.1-5.3); Red Cell Distribution Width 12.7 % (12.1-15.1); White Blood Count 9.4 10^3/uL (4.0-10.0)
[2021-02-20 20:28] LABS: HCG Qualitative Urine. Negative (Negative)
[2021-02-20 20:29] LABS: Alanine Aminotransferase 12 U/L (0-33); Albumin Level 4.4 g/dL (3.5-5.2); Alkaline Phosphatase 92 IU/L (35-105); Anion Gap 13.8 (5-19); Aspartate Amino Transferase 13 U/L (0-32); Blood Urea Nitrogen 13 mg/dL (6-20); Calcium 8.8 mg/dL (8.5-10.5); Carbon Dioxide 23 mmol/L (22-29); Chloride 104 mmol/L (98-107); Globulin 2.2 g/dL (1.3-4.6); Glomerular Filtration Rate 110.2 mL/min (90-130); Glucose 89 mg/dL (65-115); Osmolality Calculated 284 mOsm/kg (285-295); Potassium 3.8 mmol/L (3.5-5.1); Sodium 137 mmol/L (136-145); Total Bilirubin 0.2 mg/dL (0.15-1.2); Total Protein 6.6 g/dL (6.6-8.7)
[2021-02-20 20:31] LABS: Troponin(5th) Baseline 6 ng/L (0-10)
[2021-02-20 20:36] LABS: Urine Appearance Clear (CLEAR); Urine Color Yellow (Yellow)
[2021-02-20 20:37] LABS: D Dimer <= 0.27 ug/mIFEU (0-0.59)
[2021-02-20 20:37] LABS: Bilirubin Urine Neg (Negative); Blood Urine 2+ (Negative); Glucose Urine UA Norm (Normal); Ketones Urine Negative (Negative); Leukocyte Esterase Urine Negative (Negative); Nitrate Urine Negative (Negative); Protein Urine Neg (Negative); Specific Gravity, Urine 1.025 (1.005-1.030); Urobilinogen Urine 1 mg/dL (Negative); pH Urine 5 (5-7)
[2021-02-20 20:38] LABS: Add Urine Culture? No; Bacteria Urine TRACE /hpf; Mucus Urine 3+ /hpf; RBC Urine 25-40 /hpf (0-2); WBC Urine 0-4 /hpf (0-5)
[2021-02-20] MEDS: pantoprazole 40 mg SDV IVP (20:45)
[2021-02-20 20:46] LABS: Lipase 22 U/L (13-60)
[2021-02-20] MEDS: sodium chloride 0.9% 1,000 ML 999 ML IV (20:46)
[2021-02-20 20:54] LABS: Alcohol Level < 10 mg/dL (0-10)
[2021-02-20 21:27] VITALS: BP 123/90; PULSE 76; RESP 16; O2SAT 98
--- NOTE | 2021-02-20 21:35 | CTR_ITS ---
PROCEDURE INFORMATION: Exam: CT Abdomen And Pelvis Without Contrast Exam date and time: 02/20/2021 9:40 PM Age: 40 years old Clinical indication: Abdominal pain; Prior surgery; Surgery type: Gb; Patient HX: Right flank pain; Additional info: Right flank pain. Epigastric pain. Black stools TECHNIQUE: Imaging protocol: Computed tomography of the abdomen and pelvis without contrast. Radiation optimization: All CT scans at this facility use at least one of these dose optimization techniques: automated exposure control; mA and/or kV adjustment per patient size (includes targeted exams where dose is matched to clinical indication); or iterative reconstruction. COMPARISON: No relevant prior studies available. RADIATION DOSE METRICS: Total DLP (mGy-cm): 1849.09 FINDINGS: Liver: Normal. No mass. Gallbladder and bile ducts: Cholecystectomy. No dilation of the biliary system. Pancreas: Normal. No ductal dilation. Spleen: Normal. No splenomegaly. Adrenal glands: Normal. No mass. Kidneys and ureters: Normal. No hydronephrosis. Stomach and bowel: Unremarkable. No obstruction. No mucosal thickening. Appendix: No evidence of appendicitis. Intraperitoneal space: Unremarkable. No free air. No significant fluid collection. Vasculature: Unremarkable. No abdominal aortic aneurysm. Lymph nodes: Unremarkable. No enlarged lymph nodes. Urinary bladder: Unremarkable as visualized. Reproductive: Unremarkable as visualized. Bones/joints: Unremarkable. No acute fracture. Soft tissues: Unremarkable. CT/CT kidney stone [id number] IMPRESSION: No acute pathology in the abdomen or pelvis identified. Radiation Dose CTDIVOL = (mGy): DLP = 1849.09 (mGy-cm)
--- NOTE | 2021-02-20 21:46 | ECG_ITS ---
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 Measurements Intervals [place] Rate: 65 P: 60 MI: 143 QRS: 67 QRSD: 84 T: 27 QT: 379 QTc: 395 Interpretive Statements SINUS RHYTHM LOW QRS VOLTAGE IN PRECORDIAL LEADS [QRS DEFLECTION < 1.0 mV IN CHEST LEADS] Compared to ECG 11/15/2019 09:24:02 Sinus bradycardia no longer present Electronically Signed On 02-23-2021 12:25:55 CDT by Tammy Orantes M.D. [id number]
[2021-02-20] MEDS: ketorolac 30 mg/mL INJ 15 MG IVP (22:03)
[2021-02-20 22:10] VITALS: BP 126/74; PULSE 84; RESP 18; O2SAT 97
[2021-02-20 22:54] LABS: Troponin 5 2HR Delta 0 ABS# (0-10)
[2021-02-20] MEDS: orphenadrine 30 mg/mL Inj 2 mL 60 MG IM (22:55)
[2021-02-20] MEDS: nitrofurantoin SR (BID) 100 mg Capsule PO (23:48)
--- NOTE | 2021-02-20 23:48 | W.ED.CHESTPA ---
HPI - Chest Pain General: Chief Complaint: Chest Pain Stated Complaint: PAIN BEHIND L BREAST GOING INTO BACK Time Seen by Provider: 02/20/21 20:01 History of Present Illness: HPI narrative: The patient is a 40-year-old female who comes to the ER complaining of upper abdominal pain, mid back pain, and left lateral pain at the top and lateral aspect of her breast. She says the pain is worse whenever she moves and takes deep breaths. She has also a smoker and chronically coughs and says it hurts when she coughs. The left breast area she is referring to is also very tender. Also the muscles in her back which support her posture the erector spinae area are also tender in the lumbar spine and lower thoracic spine. Also her epigastric region is mildly tender and she is complaining of black stools for the past day or 2. She does have a history of heartburn and on her medication list is Nexium though she does not take that medication and has not for some time. Guaiac did not reveal much stool in the sample but it was mildly positive. MD complaint: chest pain Timing of current episode: constant Severity: moderate Quality: sharp Relieving factors: rest Exacerbating factors: palpation and movement Associated symptoms: Reports abdominal pain; Deny dyspnea, nausea, palpitations or vomiting Review of Systems General: Reports: 10 or more systems reviewed and unremarkable except in HPI and below Const: Denies: fatigue Eyes: Denies: change in vision, blurry vision or eye redness ENMT: Denies: throat pain, swelling of lips/tongue, ear or mastoid pain or nasal congestion Card: Reports: chest pain; Denies: palpitations, irregular heart rhythm, edema, dyspnea on exertion or orthopnea Resp: Denies: dyspnea, productive cough or non-productive cough GI: Reports: abdominal pain and melena; Denies: nausea or vomiting : Denies: flank pain, difficulty voiding, urinary frequency or urinary urgency Musc: Reports: back pain; Denies: neck pain, extremity pain, joint pain, joint redness, limited range of motion or muscle weakness Skin/Breast: Denies: rash, pruritus, erythema, skin pain or skin tenderness Neuro: Denies: headache(s), numbness in extremities, weakness in extremities, sensory changes, difficulty walking, dizziness, confusion or Slurred speech present Psych: Denies: anxiety or depression Endo: Denies: polyuria All/Imm: Denies: urticaria, throat swelling or tongue swelling PFSH ED PFSH: Medical History (Updated 02/20/21 @ 23:48 by Epifanio Lafleur MD) Essential hypertension LYNN (generalized anxiety disorder) GERD (gastroesophageal reflux disease) Surgical History History of bunionectomy History of cholecystectomy Family History Other Cancer Hypertension Social History Smoking and tobacco status: current every day smoker cigarettes Packs smoked per day: 0.5 Alcohol intake: current Alcohol intake frequency: few times a month Female Reproductive History: Date of last menstrual period: 01/25/21 Physical Exam Const: COMMON NORMALS: no acute distress, average body habitus, patient oriented x3, no limitations, healthy appearing, alert and well nourished GENERAL APPEARANCE: cooperative, comfortable, well kempt and well developed ORIENTATION/CONSCIOUSNESS: Yes awake, Yes oriented to person, Yes oriented to place and Yes oriented to time HENMT: COMMON NORMALS: normocephalic, external ears normal and Normal external nose present HEAD & SCALP: normal to inspection and normocephalic NOSE: Normal external nose present EXTERNAL EAR: Yes external ears normal MOUTH: Normal oral and palatal mucosa present THROAT: posterior oropharynx normal Eye: COMMON NORMALS: Equal, round and reactive pupils present and EOMs intact bilaterally GENERAL EYE: appearance normal, both eyes and all related structures PUPIL: Yes Equal, round and reactive pupils present Neck/C-Spine: COMMON NORMALS: full ROM, no lymphadenopathy, no meningeal signs and no JVD GENERAL: Yes normal visual inspection Lymph: LYMPHATIC: no lymphadenopathy noted Chest: COMMONS NORMALS: normal inspection of the chest and normal palpation of entire chest wall Resp: COMMON NORMALS: normal respiratory effort, No retractions, No use of accessory muscles, clear to auscultation bilaterally and percussion normal EFFORT & INSPECTION: Yes able to speak in complete sentences AUSCULTATION: clear to auscultation bilaterally PERCUSSION: percussion normal Cardio: COMMON NORMALS: no JVD, regular rate, regular rhythm, S1 normal heart sound present, S2 normal heart sound present and Peripheral pulses 2+ throughout RATE: regular rate RHYTHM: regular rhythm HEART SOUNDS: S1 normal heart sound present and S2 normal heart sound present PERIPHERAL PULSES: Peripheral pulses 2+ throughout GI: COMMON NORMALS: Normal to inspection, nondistended, normoactive bowel sounds present, Soft to palpation and no masses INSPECTION: Yes normal to inspection PALPATION: Yes Soft to palpation and Yes Tenderness to palpation present (GI) (Epigastric) GI image (female): 1. Epigastric tenderness 2. Tenderness to upper left breast : BLADDER/KIDNEY EXAM: Yes CVA tenderness (Mild) Back/Pelvis: COMMON NORMALS: thoracic and lumbar spine normal to inspection, no thoracic nor lumbar tenderness and thoraco-lumbar ROM normal GENERAL BACK: Yes CVA tenderness (Mild) CVA tenderness: right THORACIC SPINE/UPPER BACK: Yes pain with ROM BACK IMAGE (FEMALE): 1. Mild right flank tenderness. 2. Tenderness to erector spinae postural muscles of the lower thoracic and upper lumbar spine. Extremity: COMMON NORMALS: normal to inspection, full ROM, capillary refill normal, no joint enlargement and no pedal edema GENERAL: Yes normal exam except as noted Neuro: COMMON NORMALS: patient oriented x3, CN's II-XII intact bilaterally, moves all extremities, no focal motor deficits, no sensory deficits noted and gait normal SENSORIUM/ORIENTATION: Yes alert, Yes oriented to person, Yes oriented to place and Yes oriented to time MENINGEAL SIGNS: Yes no meningeal signs Psych: COMMON NORMALS: mental status grossly normal, Normal thought process present, cooperative, normal affect and speech normal APPEARANCE: Yes well kempt ATTITUDE: Yes calm SPEECH: Yes normal speech THOUGHT PROCESS: Normal thought process present Skin: COMMON NORMALS: no rashes or lesions noted GENERAL SKIN EXAM: no rashes or lesions noted Course Vital Signs: Vital signs: Vital Signs Temperature 98.2 F 02/20/21 19:33 Pulse Rate 84 02/20/21 22:10 Respiratory Rate 18 02/20/21 22:10 Blood Pressure 126/74 02/20/21 22:10 Pulse Oximetry 97 02/20/21 22:10 MDM - Chest Pain MDM Narrative: Medical decision making narrative: The patient came to the ER today with several complaints. The first is epigastric pain and black stools. It seems she is to have a history of heartburn and Nexium is on her medication list though she says she has not taken it for some time. Her guaiac occult stool was mildly positive in the ED on arrival. I offered her admission for this and she declined. I will place a case management referral for GI to help her get an outpatient EGD. Discharged her with omeprazole prescription and recommended avoiding spicy foods. She will return to the ER with worsening symptoms and dark stools. 2. She also complains of back pain in multiple areas worst in her lower thoracic and upper lumbar postural muscles. They were significantly tender. She was given Toradol with no improvement and Norflex with mild improvement of her symptoms and requested discharge after that. Abdominal pelvic CT was negative for any acute abdomen or back pathology. 3. Also noted a mild UTI on urinalysis. She was given Macrobid and sent home with the same. She was tender in her right flank but CT showed no pyelonephritis and her white count is normal. Recommended following up with primary care physician next week for repeat of urine. Lab Data: Labs: Lab Results 02/20/21 02/20/21 02/20/21 Range/Units 20:05 20:05 20:05 WBC 9.4 (4.0-10.0) 10^3/ uL RBC 4.96 (4.1-5.3) 10^6/u L Hgb 14.1 (11.5-15.3) g/dL Hct 43.3 (37.0-47.0) % MCV 87.3 (81-99) fL MCH 28.4 (28.0-34.0) pg MCHC 32.6 (30.0-36.0) g/dL RDW 12.7 (12.1-15.1) % Plt Count 291 (130-400) 10^3/c mm MPV 10.7 H (7.4-10.4) fL Neut % (Auto) 59.2 % Lymph % (Auto) 25.1 % [place] % (Auto) 12.2 % Eos % (Auto) 2.6 % Baso % (Auto) 0.7 % Neut # (Auto) 5.56 (1.8-7.7) 10^3/u L Lymph # (Auto) 2.4 (0.8-4.8) 10^3/u L [place] # (Auto) 1.2 H (0.2-0.9) 10^3/u L Eos # (Auto) 0.2 (0.0-0.8) 10^3/u L Baso # (Auto) 0.1 (0.0-0.1) 10^3/u L Nucleated RBC % (a uto) 0 % Nucleated RBCs # 0.0 /100WBC D-Dimer (0-0.59) ug/mIFE U Sodium 137 (136-145) mmol/L Potassium 3.8 (3.5-5.1) mmol/L Chloride 104 (98-107) mmol/L Carbon Dioxide 23 (22-29) mmol/L Anion Gap 13.8 (5-19) BUN 13 (6-20) mg/dL Creatinine 0.6 (0.5-0.9) mg/dL GFR Calculation 110.2 (90-130) mL/min Glucose 89 (65-115) mg/dL Calculated Osmolal ity 284 L (285-295) mOsm/k g Calcium 8.8 (8.5-10.5) mg/dL Total Bilirubin 0.2 (0.15-1.2) mg/dL AST 13 (0-32) U/L ALT 12 (0-33) U/L Alkaline Phosphata se 92 (35-105) IU/L Troponin T Baselin e 6 (0-10) ng/L Troponin T 120 Min [place] (0-10) ng/L Delta Troponin T (0-10) ABS# Total Protein 6.6 (6.6-8.7) g/dL Albumin 4.4 (3.5-5.2) g/dL Globulin 2.2 (1.3-4.6) g/dL Lipase (13-60) U/L HCG, Qual (Negative) Urine Color (Yellow) Urine Appearance (CLEAR) Urine pH (5-7) Ur Specific Gravit y (1.005-1.030) Urine Protein (Negative) Urine Glucose (UA) (Normal) Urine Ketones (Negative) Urine Blood (Negative) Urine Nitrate (Negative) Urine Bilirubin (Negative) Urine Urobilinogen (Negative) mg/dL Ur Leukocyte Flori ase (Negative) Urine RBC (0-2) /hpf Urine WBC (0-5) /hpf Ur Squamous Epith Cells (0-5) /hpf Amorphous Sediment Urine Bacteria (NONE) /hpf Urine Mucus /hpf Ethyl Alcohol (0-10) mg/dL 02/20/21 02/20/21 02/20/21 Range/Units 20:05 20:10 20:19 WBC (4.0-10.0) 10^3/ uL RBC (4.1-5.3) 10^6/u L Hgb (11.5-15.3) g/dL Hct (37.0-47.0) % MCV (81-99) fL MCH (28.0-34.0) pg MCHC (30.0-36.0) g/dL RDW (12.1-15.1) % Plt Count (130-400) 10^3/c mm MPV (7.4-10.4) fL Neut % (Auto) % Lymph % (Auto) % [place] % (Auto) % Eos % (Auto) % Baso % (Auto) % Neut # (Auto) (1.8-7.7) 10^3/u L Lymph # (Auto) (0.8-4.8) 10^3/u L [place] # (Auto) (0.2-0.9) 10^3/u L Eos # (Auto) (0.0-0.8) 10^3/u L Baso # (Auto) (0.0-0.1) 10^3/u L Nucleated RBC % (a uto) % Nucleated RBCs # /100WBC D-Dimer <= 0.27 (0-0.59) ug/mIFE U Sodium (136-145) mmol/L Potassium (3.5-5.1) mmol/L Chloride (98-107) mmol/L Carbon Dioxide (22-29) mmol/L Anion Gap (5-19) BUN (6-20) mg/dL Creatinine (0.5-0.9) mg/dL GFR Calculation (90-130) mL/min Glucose (65-115) mg/dL Calculated Osmolal ity (285-295) mOsm/k g Calcium (8.5-10.5) mg/dL Total Bilirubin (0.15-1.2) mg/dL AST (0-32) U/L ALT (0-33) U/L Alkaline Phosphata se (35-105) IU/L Troponin T Baselin e (0-10) ng/L Troponin T 120 Min [place] (0-10) ng/L Delta Troponin T (0-10) ABS# Total Protein (6.6-8.7) g/dL Albumin (3.5-5.2) g/dL Globulin (1.3-4.6) g/dL Lipase 22 (13-60) U/L HCG, Qual (Negative) Urine Color Yellow (Yellow) Urine Appearance Clear (CLEAR) Urine pH 5 (5-7) Ur Specific Gravit y 1.025 (1.005-1.030) Urine Protein Neg (Negative) Urine Glucose (UA) Norm (Normal) Urine Ketones Negative (Negative) Urine Blood 2+ H (Negative) Urine Nitrate Negative (Negative) Urine Bilirubin Neg (Negative) Urine Urobilinogen 1 H (Negative) mg/dL Ur Leukocyte Flori ase Negative (Negative) Urine RBC 25-40 H (0-2) /hpf Urine WBC 0-4 H (0-5) /hpf Ur Squamous Epith Cells 10-15 H (0-5) /hpf Amorphous Sediment Not Reportable Urine Bacteria Trace (NONE) /hpf Urine Mucus 3+ /hpf Ethyl Alcohol < 10 (0-10) mg/dL 02/20/21 02/20/21 Range/Units 20:19 22:28 WBC (4.0-10.0) 10^3/ uL RBC (4.1-5.3) 10^6/u L Hgb (11.5-15.3) g/dL Hct (37.0-47.0) % MCV (81-99) fL MCH (28.0-34.0) pg MCHC (30.0-36.0) g/dL RDW (12.1-15.1) % Plt Count (130-400) 10^3/c mm MPV (7.4-10.4) fL Neut % (Auto) % Lymph % (Auto) % [place] % (Auto) % Eos % (Auto) % Baso % (Auto) % Neut # (Auto) (1.8-7.7) 10^3/u L Lymph # (Auto) (0.8-4.8) 10^3/u L [place] # (Auto) (0.2-0.9) 10^3/u L Eos # (Auto) (0.0-0.8) 10^3/u L Baso # (Auto) (0.0-0.1) 10^3/u L Nucleated RBC % (a uto) % Nucleated RBCs # /100WBC D-Dimer (0-0.59) ug/mIFE U Sodium (136-145) mmol/L Potassium (3.5-5.1) mmol/L Chloride (98-107) mmol/L Carbon Dioxide (22-29) mmol/L Anion Gap (5-19) BUN (6-20) mg/dL Creatinine (0.5-0.9) mg/dL GFR Calculation (90-130) mL/min Glucose (65-115) mg/dL Calculated Osmolal ity (285-295) mOsm/k g Calcium (8.5-10.5) mg/dL Total Bilirubin (0.15-1.2) mg/dL AST (0-32) U/L ALT (0-33) U/L Alkaline Phosphata se (35-105) IU/L Troponin T Baselin e (0-10) ng/L Troponin T 120 Min [place] 6.00 (0-10) ng/L Delta Troponin T 0 (0-10) ABS# Total Protein (6.6-8.7) g/dL Albumin (3.5-5.2) g/dL Globulin (1.3-4.6) g/dL Lipase (13-60) U/L HCG, Qual Negative (Negative) Urine Color (Yellow) Urine Appearance (CLEAR) Urine pH (5-7) Ur Specific Gravit y (1.005-1.030) Urine Protein (Negative) Urine Glucose (UA) (Normal) Urine Ketones (Negative) Urine Blood (Negative) Urine Nitrate (Negative) Urine Bilirubin (Negative) Urine Urobilinogen (Negative) mg/dL Ur Leukocyte Flori ase (Negative) Urine RBC (0-2) /hpf Urine WBC (0-5) /hpf Ur Squamous Epith Cells (0-5) /hpf Amorphous Sediment Urine Bacteria (NONE) /hpf Urine Mucus /hpf Ethyl Alcohol (0-10) mg/dL Discharge Plan Discharge Patient Disposition: Home Clinical Impression: Complaint of melena, Back pain, Abdominal pain, UTI (urinary tract infection) Condition: Stable Prescriptions: New omeprazole 40 mg capsule,delayed release(DR/EC) 40 mg PO DAILY Qty: 30 RF: 0 cyclobenzaprine 5 mg tablet 5 mg PO TID PRN (Reason: muscle spasm) Qty: 15 RF: 0 Macrobid 100 mg capsule 100 mg PO BID 5 Days Qty: 10 RF: 0 Discontinued esomeprazole magnesium [Nexium] 40 mg capsule,delayed release(DR/EC) 40 mg PO DAILY 90 Days Qty: 90 RF: 1 No Action Symbicort 160-4.5 mcg/actuation HFA aerosol inhaler 2 puff INHALATION BID Qty: 10.2 RF: 0 Celexa 20 mg tablet 20 mg PO DAILY Qty: 90 RF: 1 betamethasone acet,sod phos [Celestone Soluspan] 6 mg/mL suspension 1.2 mg INTRA-RENU ONCE Qty: 0.2 RF: 0 lidocaine-epinephrine 1 %-1:100,000 solution 0.25 ml SUBCUT ONCE Qty: 1 RF: 0 hydrochlorothiazide 12.5 mg tablet 12.5 mg PO QAM Qty: 90 RF: 1 losartan 50 mg tablet 50 mg PO DAILY Qty: 90 RF: 1 Discharge Orders: Discharge ED (Routine); Ordered 02/20/21 Ordered By: Epifanio Lafleur Referrals: Carolin Vasquez DO [Primary Care Provider] - Discharge Diet: Advance as tolerated Discharge Activity: Resume usual activity Patient Instructions: Abdominal Pain (ED), Opioid Safety Activity Restrictions/Additional Instructions: You have come in with back pain, abdominal pain, and black stool. The cause of your back pain is most likely a muscle strain giving you a spasm and pain. Please take Tylenol, ibuprofen at home and use the Flexeril to help with your symptoms. Do not mix this medication with drugs, alcohol, nor operate machinery while using it. Follow-up with your primary care physician next week to monitor improvement of your symptoms. 2. You are also complaining of black stool. This is most likely from your stomach. You were taking Nexium at one time but have not taken it recently. I will discharge you with a prescription for omeprazole to help your stomach repair itself. I have offered to admit you but you have declined. I have placed a case management referral to help you get an appointment with a GI doctor as you will likely need a top and bottom scope to see what is going on. Return to the ER with worsening symptoms or worsening dark stools. 3. You also have a mild urinary tract infection. I will be discharging you home with Macrobid for 5 days. Drink lots of fluids and follow-up with your doctor next week to have your urine retested Coding Level of Care Code ED Presser Hand for Handy Gamboa
--- NOTE | 2021-02-24 12:13 | DCPLANNER ---
Addendum entered by Mariposa Zaidi 02/26/21 15:57: squash centre manager was contacted by general surgery, stating that they were unable to speak with patient at this time. Clinic mailed a letter to patient informing the patient to contact general surgery to schedule appointment. Original Note: squash centre manager had message to schedule a follow up appointment for patient with general surgery. squash centre manager emailed patients information to Juan J at [facility] General Surgery. Patients information will be printed and reviewed. Clinic will call patient with appointment information.
--- NOTE | 2021-03-06 09:21 | DCPLANNER ---
assistant store manager trainee called patient to remind patient of appointment scheduled for 03.06.21 at [facility]. assistant store manager trainee called phone number [phone], unable to speak with patient at this time, a voicemail was left for patient to return foster care case manager phone call. assistant store manager trainee did leave appointment information on voicemail.
--- NOTE | 2021-03-06 13:44 | DCPLANNER ---
Patient had a follow up appointment scheduled for 03.06.[address] Mednes, at [facility] - patient did attend appointment.
--- NOTE | 2021-03-07 08:36 | DCPLANNER ---
product development manager called patient and left a voicemail for patient to contact pillowcase cleaner if she was still wanting the referral to general surgery.
== END 2021-02-21 00:04 | disposition home or self-care (01) ==
PROVIDERS: Emergency Medicine; Emergency Provider Family Medicine; PCP Family Medicine
DX: N39.0 Urinary tract infection, site not specified (principal); K92.1 Melena; M54.9 Dorsalgia, unspecified; R10.9 Unspecified abdominal pain; I10 Essential (primary) hypertension; F17.210 Nicotine dependence, cigarettes, uncomplicated
CPT/HCPCS: 36415; 71045; 74176; 80053; 80307; 81001; 81025; 83690; 84484; 85025; 85378; 93005; 96361; 96372; 96374; 96375; 99284; C9113; J1885; J2360; J7030

== ENCOUNTER 2022-04-15 14:23 | Emergency (ER) | payer SELFPAY ==
[2022-04-15] VITALS (8 sets, daily range): BP systolic 128–164; BP diastolic 72–102; PULSE 73–92; RESP 14–18; TEMP 37.1; O2SAT 94–97; BMI 32.5
--- NOTE | 2022-04-15 14:43 | XR_ITS ---
WS: [id number] PORTABLE CHEST HISTORY: chest pain COMPARISON: 02/20/2021 Lungs are clear and well expanded. No pleural effusion or pneumothorax. Cardiac size: Normal. Mediastinum/Aorta: Normal mediastinum. No osseous abnormality seen. XR/XR chest 1V portable [id number] IMPRESSION: Unremarkable portable chest.
--- NOTE | 2022-04-15 14:43 | ECG_ITS ---
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 Measurements Intervals [place] Rate: 87 P: 61 NV: 133 QRS: 76 QRSD: 89 T: 34 QT: 341 QTc: 411 Interpretive Statements SINUS RHYTHM POSSIBLE LEFT ATRIAL ENLARGEMENT [-0.1mV P-WAVE IN V1/V2] NONSPECIFIC T-WAVE ABNORMALITY Compared to ECG 02/20/2021 22:19:36 T-wave abnormality now present Electronically Signed On 04-16-2022 18:57:59 CDT by iBn Cota M.D. [id number] f
--- NOTE | 2022-04-15 15:33 | PC.PHAR ---
pt states she takes no rx medications-pt states just takes the medications entered prn-
--- NOTE | 2022-04-15 15:46 | CTR_ITS ---
PROCEDURE INFORMATION: Exam: CTA Chest With Contrast Exam date and time: 04/15/2022 5:44 PM Age: 41 years old Clinical indication: Pain and condition or disease; Other: Cough/ chest pain; Chest wall pain and other: Cough, congestion, sub scapular pain; Prior surgery; Surgery date: 6+ months; Surgery type: Aiyana; Additional info: Dissection TECHNIQUE: Imaging protocol: Computed tomographic angiography of the chest with contrast. 3D rendering (Not supervised by radiologist): MIP and/or 3D reconstructed images were created by the technologist. Radiation optimization: All CT scans at this facility use at least one of these dose optimization techniques: automated exposure control; mA and/or kV adjustment per patient size (includes targeted exams where dose is matched to clinical indication); or iterative reconstruction. Contrast material: OMNIPAQUE 350; Contrast volume: 85 ml; Contrast route: INTRAVENOUS (IV); COMPARISON: CR XR chest 1V portable [id number] 04/15/2022 2:53 PM RADIATION DOSE METRICS: Total DLP (mGy-cm): 617.24 FINDINGS: Pulmonary arteries: Normal. No pulmonary emboli. Aorta: Unremarkable. No aortic aneurysm. No aortic dissection. Lungs: 3 mm right middle lobe nodule. 4 mm left lower lobe nodule. The lungs are otherwise clear. No consolidation. Pleural spaces: Unremarkable. No pneumothorax. No pleural effusion. Heart: Unremarkable. No cardiomegaly. No pericardial effusion. Lymph nodes: Prominent bilateral hilar lymph nodes are most likely reactive. Gallbladder and bile ducts: Cholecystectomy. The bile ducts are normal. Bones/joints: Unremarkable. No acute fracture. Soft tissues: Unremarkable. CT/CT angio chest PE [facility] [id number] IMPRESSION: 1. No acute finding. 2. 3 mm and 4 mm pulmonary nodules. For patients at low risk (minimal or absent history of smoking and of other known risk factors), no routine follow-up is indicated. For patients at high risk (history of smoking or of other known risk factors), consider optional CT Chest at 12 months. (Reference: Cristo) References: marija Sharma al. Guidelines for Management of Incidental Pulmonary Nodules Detected on CT Images: From the Fleischner Society 2017. Radiology. 2017;284(1):228-243.
--- NOTE | 2022-04-15 15:48 | ED_ITS ---
HPI - Chest Pain General: Chief Complaint: Chest Pain Stated Complaint: Cough, chest & back pain Time Seen by Provider: 04/15/22 15:40 History of Present Illness: 41-year-old presents with chest pain. States she has had a cough for about 3 weeks but last night started having chest pain that radiates to her back and between her shoulder blades. Describes it as burning. Is not exertional or pleuritic. Denies lower extremity pain or swelling. Denies any fevers or chills. Denies nausea or vomiting. Review of Systems Narrative: - CONSTITUTIONAL: Denies weight loss, fever and chills. - HEENT: Denies changes in vision and hearing. - RESPIRATORY: Denies SOB and cough. - CV: As above - GI: Denies abdominal pain, nausea, vomiting and diarrhea. - : Denies dysuria and urinary frequency. - MSK: Denies myalgia and joint pain. - SKIN: Denies rash and pruritus. - NEUROLOGICAL: Denies headache, weakness, numbness and syncope. - PSYCHIATRIC: Denies suicidal ideation PFS ED PFSH: Medical History (Updated 03/07/21 @ 20:52 by Tammy Orantes MD) Essential hypertension LYNN (generalized anxiety disorder) GERD (gastroesophageal reflux disease) Surgical History History of bunionectomy History of cholecystectomy Family History Father No problems noted. Grandmother Diabetes Other Cancer Hypertension Myocardial infarction Stroke Social History Smoking and tobacco status: current every day smoker cigarettes Packs smoked per day: 0.5 Alcohol intake: current Alcohol intake frequency: few times a month Female Reproductive History: Date of last menstrual period: 01/25/21 Physical Exam Narrative: EXAM NARRATIVE: - GENERAL: Alert and oriented x 3. No acute distress. Well-nourished. - EYES: EOMI. Anicteric. - HENT: Atraumatic, no C-spine tenderness. Moist mucous membranes. No scleral icterus. No cervical lymphadenopathy. - LUNGS: Clear to auscultation bilaterally. No accessory muscle use. Equal lung sounds bilaterally. No respiratory distress. - CARDIOVASCULAR: Regular rate and rhythm. No murmur. No JVD. - ABDOMEN: Soft, non-tender and non-distended. Negative CVA tenderness bilaterally, no rebound or guarding, negative Kirkpatrick sign. No palpable masses. - EXTREMITIES: No edema. Non-tender. - SKIN: No rashes or lesions. Warm. - NEUROLOGIC: No meningismus or focal neurological deficits. CN II-XII grossly intact. - PSYCHIATRIC: Cooperative. Appropriate mood and affect. Course Vital Signs: Vital signs: Vital Signs Temperature 98.8 F 04/15/22 14:32 Pulse Rate 73 04/15/22 18:45 Respiratory Rate 16 04/15/22 20:00 Blood Pressure 144/90 04/15/22 20:00 Pulse Oximetry 96 04/15/22 20:00 MDM - Chest Pain Medical Decision Making 41-year-old presents due to chest pain and cough. Physical exam unremarkable. Patient is hemodynamically stable afebrile nontoxic-appearing. EKG and troponins do not reveal any sign of acute ischemia or other acute abnormality. CTA does not reveal any sign of PE dissection or other acute abnormality. Imaging does however reveal pulmonary nodules and patient was notified of this and instructed that outpatient follow-up is recommended for this. Remainder of lab work unremarkable. At this time I believe patient would be safe for discharge and outpatient follow-up. Return precautions provided. Plan was reviewed with the patient who expressed understanding. Questions answered. Patient will follow up with PCP. Patient discharged in stable condition. Lab Data : 04/15/22 15:49 04/15/22 15:49 Radiology Impressions Chest X-Ray 04/15/22 14:43 IMPRESSION: Unremarkable portable chest. Chest CTA 04/15/22 15:46 IMPRESSION: 1. No acute finding. 2. 3 mm and 4 mm pulmonary nodules. For patients at low risk (minimal or absent history of smoking and of other known risk factors), no routine follow-up is indicated. For patients at high risk (history of smoking or of other known risk factors), consider optional CT Chest at 12 months. (Reference: Cristo) References: Cristo Anthony et al. Guidelines for Management of Incidental Pulmonary Nodules Detected on CT Images: From the Fleischner Society 2017. Radiology. 2017;284(1):228-243. Laboratory Results WBC 12.6 10^3/uL (4.0-10.0) H 04/15/22 15:49 RBC 5.30 10^6/uL (4.1-5.3) 04/15/22 15:49 Hgb 14.7 g/dL (11.5-15.3) 04/15/22 15:49 Hct 44.5 % (37.0-47.0) 04/15/22 15:49 MCV 84.0 fl (81-99) 04/15/22 15:49 MCH 27.7 pg (28.0-34.0) L 04/15/22 15:49 MCHC 33.0 g/dL (30.0-36.0) 04/15/22 15:49 RDW 13.0 % (12.1-15.1) 04/15/22 15:49 Plt Count 314 10^3/cmm (130-400) 04/15/22 15:49 MPV 11.0 fL (7.4-10.4) H 04/15/22 15:49 Neut % (Auto) 67.8 % 04/15/22 15:49 Lymph % (Auto) 21.6 % 04/15/22 15:49 Woodson % (Auto) 8.3 % 04/15/22 15:49 Eos % (Auto) 1.4 % 04/15/22 15:49 Baso % (Auto) 0.7 % 04/15/22 15:49 Neut # (Auto) 8.53 10^3/uL (1.8-7.7) H 04/15/22 15:49 Lymph # (Auto) 2.7 10^3/uL (0.8-4.8) 04/15/22 15:49 Woodson # (Auto) 1.0 10^3/uL (0.2-0.9) H 04/15/22 15:49 Eos # (Auto) 0.2 10^3/uL (0.0-0.8) 04/15/22 15:49 Baso # (Auto) 0.1 10^3/uL (0.0-0.1) 04/15/22 15:49 Nucleated RBC % (auto) 0 % 04/15/22 15:49 Nucleated RBCs # 0.0 /100WBC 04/15/22 15:49 Sodium 138 mmol/L (136-145) 04/15/22 15:49 Potassium 4.0 mmol/L (3.5-5.1) 04/15/22 15:49 Chloride 101 mmol/L (98-107) 04/15/22 15:49 Carbon Dioxide 25 mmol/L (22-29) 04/15/22 15:49 Anion Gap 16.0 (5-19) 04/15/22 15:49 BUN 13 mg/dL (6-20) 04/15/22 15:49 Creatinine 0.6 mg/dL (0.5-0.9) 04/15/22 15:49 GFR Calculation 109.6 mL/min (90-130) 04/15/22 15:49 Glucose 105 mg/dL (65-115) 04/15/22 15:49 Calculated Osmolality 286 mOsm/kg (285-295) 04/15/22 15:49 Calcium 9.6 mg/dL (8.5-10.5) 04/15/22 15:49 Total Bilirubin 0.3 mg/dL (0.15-1.2) 04/15/22 15:49 AST 16 U/L (0-32) 04/15/22 15:49 ALT 15 U/L (0-33) 04/15/22 15:49 Alkaline Phosphatase 85 IU/L (35-105) 04/15/22 15:49 Troponin T Baseline 6 ng/L (0-10) 04/15/22 15:49 Troponin T 120 Minute 6.00 ng/L (0-10) 04/15/22 19:35 Total Protein 7.5 g/dL (6.6-8.7) 04/15/22 15:49 Albumin 4.4 g/dL (3.5-5.2) 04/15/22 15:49 Globulin 3.1 g/dL (1.3-4.6) 04/15/22 15:49 Lipase 22 U/L (13-60) 04/15/22 15:49 SARS-CoV-2 Ag (Rapid) Negative (Negative) 04/15/22 16:02 EKG Data EKG 1: Other EKG comments: Sinus rhythm, rate of 87, no sign of acute ischemia or other acute abnormality. Discharge Plan Discharge Condition: Stable Prescriptions: No Action Tums 200 mg calcium (500 mg) Tablet,Chewable 600 mg PO PRN 0RF Mucinex 600 mg Tablet Extended Release 12hr 600 mg PO BID PRN (Reason: Congestion) 0RF Referrals: Carolin Vasquez DO [Primary Care Provider] - Coding Level of Care Code ED Data Operations Manager for Handy Gamboa
[2022-04-15 15:59] LABS: Basophils # 0.1 10^3/uL (0.0-0.1); Basophils % 0.7 %; Eosinophils # 0.2 10^3/uL (0.0-0.8); Eosinophils % 1.4 %; Hematocrit 44.5 % (37.0-47.0); Hemoglobin 14.7 g/dL (11.5-15.3); Lymphocytes # 2.7 10^3/uL (0.8-4.8); Lymphocytes % 21.6 %; Mean Corpuscular Hemoglobin 27.7 pg (28.0-34.0); Monocytes % 8.3 %; Neutrophils # 8.53 10^3/uL (1.8-7.7); Neutrophils % 67.8 %; Nucleated Red Blood Cells % 0 %; Platelet Count 314 10^3/cmm (130-400); White Blood Count 12.6 10^3/uL (4.0-10.0)
[2022-04-15] MEDS: lidocaine 2% viscous 15 ML, aluminum-mag hydrox-simethicon 30 ML, sucralfate oral liq 1 GM PO (16:06)
[2022-04-15 16:36] LABS: Troponin(5th) Baseline 6 ng/L (0-10)
[2022-04-15 16:43] LABS: SARS Covid-2 Antigen Negative (Negative)
--- NOTE | 2022-04-15 16:43 | ECG_ITS ---
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 Measurements Intervals [place] Rate: 80 P: 61 TN: 138 QRS: 71 QRSD: 81 T: 25 QT: 342 QTc: 394 Interpretive Statements SINUS RHYTHM POSSIBLE LEFT ATRIAL ENLARGEMENT [-0.1mV P-WAVE IN V1/V2] NONSPECIFIC T-WAVE ABNORMALITY Compared to ECG 04/15/2022 14:40:37 No significant changes Electronically Signed On 04-16-2022 19:03:36 CDT by Bin Cota M.D. [id number]
[2022-04-15 16:53] LABS: Alanine Aminotransferase 15 U/L (0-33); Albumin Level 4.4 g/dL (3.5-5.2); Alkaline Phosphatase 85 IU/L (35-105); Aspartate Amino Transferase 16 U/L (0-32); Blood Urea Nitrogen 13 mg/dL (6-20); Calcium 9.6 mg/dL (8.5-10.5); Carbon Dioxide 25 mmol/L (22-29); Chloride 101 mmol/L (98-107); Globulin 3.1 g/dL (1.3-4.6); Glomerular Filtration Rate 109.6 mL/min (90-130); Glucose 105 mg/dL (65-115); Lipase 22 U/L (13-60); Osmolality Calculated 286 mOsm/kg (285-295); Sodium 138 mmol/L (136-145); Total Bilirubin 0.3 mg/dL (0.15-1.2); Total Protein 7.5 g/dL (6.6-8.7)
[2022-04-15] MEDS: iohexol 350 mg/mL 100 mL Btl IV (17:54)
--- NOTE | 2022-04-15 20:43 | ECG_ITS ---
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 Measurements Intervals [place] Rate: 71 P: 59 TX: 139 QRS: 65 QRSD: 83 T: 33 QT: 356 QTc: 389 Interpretive Statements SINUS RHYTHM POSSIBLE LEFT ATRIAL ENLARGEMENT [-0.1mV P-WAVE IN V1/V2] Compared to ECG 04/15/2022 16:54:46 T-wave abnormality no longer present Electronically Signed On 04-16-2022 19:03:09 CDT by Bin Cota M.D. [id number]
[2022-04-15 20:48] LABS: Troponin 5 2HR Delta 0 ABS# (0-10)
== END 2022-04-15 21:02 | disposition home or self-care (01) ==
PROVIDERS: Physician Assistant; Emergency Provider Emergency Medicine; PCP Family Medicine
DX: R05.9 Cough, unspecified (principal); R07.9 Chest pain, unspecified; I10 Essential (primary) hypertension; F17.210 Nicotine dependence, cigarettes, uncomplicated; Z20.822 Contact with and (suspected) exposure to COVID-19
CPT/HCPCS: 71045; 71275; 80053; 83690; 84484; 85025; 87426; 93005; 99285; Q9967

== ENCOUNTER 2022-08-27 14:50 | Emergency (ER) | payer SELFPAY ==
[2022-08-27 14:57] VITALS: BP 144/90; PULSE 82; RESP 20; TEMP 36.6; O2SAT 82; BMI 34.2
--- NOTE | 2022-08-27 15:10 | XRR_ITS ---
PROCEDURE INFORMATION: Exam: XR Right Foot Exam date and time: 08/27/2022 4:14 PM Age: 42 years old Clinical indication: Injury or trauma; Other: Cow fell on foot; Blunt trauma; Right; Injury date: 08/22/22; Additional info: Cow fell on her foot- mid foot pain and difficult to walk TECHNIQUE: Imaging protocol: Radiologic exam of the Right foot. Views: 3 or more views. COMPARISON: CR XR foot RT min 3V* [id number] 09/25/2019 11:48 AM FINDINGS: Bones/joints: Osseous structures are intact. Negative for fracture. Joint spaces are preserved. Soft tissues: Normal. XR/XR foot RT min 3V* [id number] IMPRESSION: No acute findings.
--- NOTE | 2022-08-27 15:26 | W.ED.EXTPRO ---
HPI - Extremity Problem General: Chief complaint: Extremity Injury, Lower Stated complaint: right foot injury Time Seen by Provider: 08/27/22 14:51 History of Present Illness: Patient is in today for right foot pain. She reports that on Wednesday she was trying to help a sick cow get up and she was pushing from behind the couch was able to stand up and then lost his balance and fell onto her right foot and leg. She reports that since that time it has been very painful to walk. She reports pain to the dorsal medial foot. She reports radiation of pain all the way up her entire leg. She is walking on the lateral edge of her foot but is unable to bear weight flat on the foot Associated symptoms: Deny chest pain or fever(s) Review of Systems Const: Denies: fever(s) or chills Card: Denies: chest pain or palpitations Resp: Denies: dyspnea Musc: Reports: joint pain (Right foot pain) [facility] ED PFSH: Medical History (Updated 08/27/22 @ 16:20 by DAVID Castañeda) Essential hypertension LYNN (generalized anxiety disorder) GERD (gastroesophageal reflux disease) Surgical History History of bunionectomy History of cholecystectomy Family History Father No problems noted. Grandmother Diabetes Other Cancer Hypertension Myocardial infarction Stroke Social History Smoking and tobacco status: current every day smoker cigarettes Packs smoked per day: 0.5 Alcohol intake: current Alcohol intake frequency: few times a month Female Reproductive History: Date of last menstrual period: 01/25/21 Physical Exam Const: COMMON NORMALS: no acute distress, patient oriented x3 and alert Resp: COMMON NORMALS: normal respiratory effort and No use of accessory muscles Extremity: NARRATIVE EXTREMITY EXAM: Patient has moderate soft tissue swelling to the right foot. She has tenderness to palpation right dorsal medial foot. No obvious bony deformities or step-offs appreciated. CSM is within normal limits to the foot. Patient has limited flexion of the toes due to pain. Neuro: COMMON NORMALS: patient oriented x3 SENSORIUM/ORIENTATION: Yes alert Course Vital Signs: Vital signs: Vital Signs Temperature 97.8 F 08/27/22 14:57 Pulse Rate 82 08/27/22 14:57 Respiratory Rate 20 H 08/27/22 14:57 Blood Pressure 144/90 08/27/22 14:57 Pulse Oximetry 82 L 08/27/22 14:57 Oxygen Delivery Me thod 08/27/22 14:57 MDM - Extremity (Nontraumatic) Medical Decision Making Patient is in for right foot pain status post a cow falling on her on Wednesday. Physical exam shows pain to the dorsal medial foot with no obvious bony or soft tissue deformity appreciated. CSM within normal limits. Limited range of motion flexion of the toes due to pain. X-ray 3 view right foot wet read: Concern for a medial cuneiform fracture. Nondisplaced. Will await radiologist read. Radiologist read x-ray as no acute findings. Given that the patient is point tender in this region I will go ahead and place the patient in a walking boot with crutches. Keep her nonweightbearing and refer her to orthopedics. We will give her a note for work. Advised her of conservative treatments at home including ice, rest, elevation. Return to the ER as Lab Data Radiology Impressions Foot X-Ray 08/27/22 15:10 IMPRESSION: No acute findings. Discharge Plan Discharge Patient Disposition: Home Clinical Impression: Contusion of foot Condition: Stable Prescriptions: No Action albuterol sulfate 90 mcg/actuation HFA aerosol inhaler 1 inh inhalation QID PRN (Reason: shortness of breath or wheezing) Qty: 8.5 0RF meloxicam 15 mg tablet 15 mg PO DAILY Qty: 30 0RF Rx Instructions: Take with food pantoprazole [Protonix] 40 mg tablet,delayed release (DR/EC) 40 mg PO DAILY Qty: 30 0RF Tums 200 mg calcium (500 mg) Tablet,Chewable 600 mg PO PRN Discharge Orders: Discharge ED (Routine); Ordered 08/27/22 Ordered By: Leydi Shipman Referrals: Carolin Vasquez DO [Primary Care Provider] - Discharge Diet: Usual diet Discharge Activity: Limit activity as instructed Activity Restrictions/Additional Instructions: Continue in the walking boot with crutches and stay nonweightbearing on your right foot until evaluated by orthopedics. Orthopedics should call you to schedule an appointment. Rest, ice, elevate the extremity. Follow-up in ER as needed for new or worsening symptoms. Stand Alone Forms: Work/School Release Coding Level of Care Code ED Head Baggage Porter for Chg Fwd Exam Expanded Problem Focused
[2022-08-27] MEDS: ketorolac 60 mg/2 mL INJ IM (15:47)
--- NOTE | 2022-08-28 08:06 | DCPLANNER ---
Addendum entered by Mariposa Zaidi 09/09/22 09:23: Patient had a follow up appointment scheduled with ortho - patient did attend appointment. Original Note: manager acute had message to schedule a follow up appointment for patient with ortho. manager acute sent patients information to the front office staff at ortho. Patients information will be printed and reviewed. Clinic will call patient with appointment information.
== END 2022-08-27 17:30 | disposition home or self-care (01) ==
PROVIDERS: Emergency Provider Nurse Practitioner Family; PCP Family Medicine
DX: S90.31XA Contusion of right foot, initial encounter (principal); I10 Essential (primary) hypertension; F17.210 Nicotine dependence, cigarettes, uncomplicated; W55.22XA Struck by cow, initial encounter
CPT/HCPCS: 73630; 96372; 99284; E0114; J1885

== ENCOUNTER → 2022-09-02 07:52 | Outpatient (BNVA) | payer SELFPAY | PROVIDERS: PCP Family Medicine; Visit Provider Podiatrist Foot & Ankle Surgery | DX: S93.621A Sprain of tarsometatarsal ligament of right foot, initial encounter (principal); X58.XXXA Exposure to other specified factors, initial encounter | CPT/HCPCS: 73630 ==

== ENCOUNTER → 2022-09-28 15:28 | Outpatient (BNVA) | payer SELFPAY | PROVIDERS: PCP Family Medicine; Visit Provider Podiatrist Foot & Ankle Surgery | DX: S93.621A Sprain of tarsometatarsal ligament of right foot, initial encounter (principal); X58.XXXA Exposure to other specified factors, initial encounter; R60.0 Localized edema | CPT/HCPCS: 73630 ==

== ENCOUNTER → 2023-02-02 12:48 | Outpatient (BNVA) | payer BC, SELFPAY | PROVIDERS: PCP Family Medicine; Visit Provider Emergency Medicine | DX: R10.9 Unspecified abdominal pain (principal) | CPT/HCPCS: 81000 ==

== ENCOUNTER 2023-02-03 10:00 | Emergency (ER) | payer BC, SELFPAY ==
[2023-02-03 11:26] VITALS: BP 141/84; PULSE 81; TEMP 36.8; O2SAT 97; BMI 35.9
[2023-02-03 11:39] LABS: HCG, Serum Qual Negative (Negative)
[2023-02-03 12:06] LABS: Urine Appearance Clear (CLEAR); Urine Color Orange (Yellow)
[2023-02-03 12:07] LABS: Add Urine Microscopic? YES
[2023-02-03 12:08] LABS: Bacteria Urine TRACE /hpf; RBC Urine 0-4 /hpf (0-2); Squamous Epithelial Cell Urine 0-4 /hpf (0-5); WBC Urine 0-4 /hpf (0-5)
== END 2023-02-03 12:56 | disposition left against medical advice (07) ==
PROVIDERS: Physician Assistant; Emergency Provider Family Medicine; PCP Family Medicine
DX: Z53.21 Procedure and treatment not carried out due to patient leaving prior to being seen by health care provider (principal)
CPT/HCPCS: 36415; 81001; 84703

== ENCOUNTER 2023-04-12 07:30 | Emergency (ER) | payer BC, SELFPAY ==
[2023-04-12 07:38] VITALS: BP 128/95; PULSE 60; RESP 18; TEMP 36.8; O2SAT 98; BMI 37.8
--- NOTE | 2023-04-12 07:45 | XR_ITS ---
WS: [id number] Exam: XR hand RT min 3V* [id number] Date/Time of Exam: 04/12/2023 7:50 AM Reason For Exam: trauma No acute fracture or dislocation. No soft tissue foreign bodies are identified. XR/XR hand RT min 3V* [id number] IMPRESSION: 1. No fracture or other significant finding.
--- NOTE | 2023-04-12 07:50 | ED_ITS ---
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 Initially did not seem to hurt too badly. this happened 3 days ago. Patient presents ER this morning complaining of increased pain and discomfort difficulty with flexion of her fingers to make a fist. No obvious deformity sensation is normal. MD Complaint: extremity pain Onset (ago): day(s) (3) Pain Consistency: constant Location: right and upper extremity (Hand) Quality: aching Relieving factors: rest Exacerbating factors: range of motion and palpation Associated symptoms: Deny chest pain, fever(s) or rash Review of Systems Const: Denies: fever(s) or chills Card: Denies: chest pain or dyspnea on exertion Resp: Denies: dyspnea GI: Denies: abdominal pain or nausea Skin/Breast: Denies: rash or pruritus PFSH ED PFSH: Medical History (Updated 04/12/23 @ 08:14 by Bill Craven DO) Essential hypertension LYNN (generalized anxiety disorder) GERD (gastroesophageal reflux disease) Surgical History History of bunionectomy History of cholecystectomy Family History Father No problems noted. Grandmother Diabetes Other Cancer Hypertension Myocardial infarction Stroke Social History Smoking and tobacco status: current every day smoker cigarettes Packs smoked per day: 0.5 Alcohol intake: current Alcohol intake frequency: few times a month Substance/Drug Use: never Physical Exam Const: GENERAL APPEARANCE: cooperative and comfortable ORIENTATION/CONSCIOUSNESS: Yes awake, Yes oriented to person, Yes oriented to place and Yes oriented to time HENMT: COMMON NORMALS: normocephalic, atraumatic and hearing grossly normal bilaterally HEAD & SCALP: normocephalic and atraumatic Resp: COMMON NORMALS: normal respiratory effort Extremity: COMMON NORMALS: normal to inspection, capillary refill normal, no clubbing, cyanosis or edema, no calf tenderness and no pedal edema OTHER: No deformity to hand neurovascular right hand is intact. Neuro: SENSORIUM/ORIENTATION: Yes oriented to person, Yes oriented to place and Yes oriented to time Skin: COMMON NORMALS: no rashes or lesions noted GENERAL SKIN EXAM: no rashes or lesions noted Course Vital Signs: Vital signs: Vital Signs Temperature 98.3 F 04/12/23 07:38 Pulse Rate 78 04/12/23 08:20 Respiratory Rate 18 04/12/23 08:20 Blood Pressure 128/95 04/12/23 08:20 Pulse Oximetry 99 04/12/23 08:20 Oxygen Delivery Me thod Room Air 04/12/23 07:54 MDM - Extremity (Nontraumatic) Medical Decision Making FullX-rays negative for acute fracture. Function and sensation. At this point place mostly soft tissue injury. Recommend anti-inflammatories ice and needed can return to work. Medical Records I reviewed the patient's medical records. Lab Data I reviewed the patient's lab results. Radiology Impressions Hand X-Ray 04/12/23 07:45 IMPRESSION: 1. No fracture or other significant finding. Discharge Plan Discharge Patient Disposition: Home Clinical Impression: Hand pain, right Condition: Stable Prescriptions: New diclofenac sodium 75 mg tablet,delayed release (DR/EC) 75 mg PO Q12H PRN (Reason: pain) Qty: 20 0RF No Action fluconazole [Diflucan] 150 mg tablet 150 mg PO Q3D Qty: 2 0RF phenazopyridine [Pyridium] 200 mg tablet 200 mg PO Q8H PRN (Reason: pain) Qty: 6 0RF sulfamethoxazole-trimethoprim [Bactrim DS] 800-160 mg tablet 1 tab PO BID 7 Days Qty: 14 0RF ondansetron 8 mg tablet,disintegrating 8 mg PO Q8H 5 Days Qty: 15 0RF Discharge Orders: Discharge ED (Routine); Ordered 04/12/23 Ordered By: Bill Craven Referrals: Carolin Vasquez DO [Primary Care Provider] - Discharge Diet: Usual diet Discharge Activity: Increase activity as tolerated Patient Instructions: Opioid Safety, Pain Management Activity Restrictions/Additional Instructions: You are seen today for a crush injury to your right hand. There is no fracture present on x-ray. Recommend anti-inflammatories and ice as needed you can use the right hand as tolerated. If symptoms persist follow-up through your work comp physician or through your primary care physician. Coding Level of Care Code ED Supervisor Smoke Control for Handy Gamboa
[2023-04-12] MEDS: TRAMadol 50 mg Tablet PO (07:53)
[2023-04-12 07:54] VITALS: BP 128/95; PULSE 78; RESP 18; O2SAT 99
[2023-04-12 08:20] VITALS: BP 128/95; PULSE 78; RESP 18; O2SAT 99
== END 2023-04-12 08:21 | disposition home or self-care (01) ==
PROVIDERS: Emergency Provider Family Medicine; PCP Family Medicine
DX: M79.641 Pain in right hand (principal); F17.210 Nicotine dependence, cigarettes, uncomplicated; I10 Essential (primary) hypertension
CPT/HCPCS: 73130; 99283

== ENCOUNTER 2023-07-11 10:47 | Emergency (ER) | payer BC, SELFPAY ==
[2023-07-11 11:07] VITALS: BP 141/74; PULSE 81; RESP 18; TEMP 36.4; O2SAT 99; BMI 36.6
[2023-07-11 11:25] LABS: Basophils % 0.6 %; Eosinophils % 0.6 %; Hematocrit 44.6 % (36-47); Lymphocytes # 1.1 10^3/uL (0.8-4.8); Mean Corpuscular HGB Conc 31.8 g/dL (30-55); Mean Corpuscular Hemoglobin 27.6 pg (27-33); Mean Corpuscular Volume 86.6 fl (85-98); Mean Platelet Volume 10.9 fL (7.4-10.4); Monocytes # 1.1 10^3/uL (0.2-0.9); Neutrophils # 2.81 10^3/uL (1.8-7.7); Neutrophils % 55.2 %; Nucleated Red Blood Cells % 0 %; Platelet Count 212 10^3/cmm (157-399); Red Blood Count 5.15 10^6/uL (3.85-5.65); Red Cell Distribution Width 13.2 % (12.1-15.1); White Blood Count 5.09 10^3/uL (3.29-11.43)
--- NOTE | 2023-07-11 11:45 | W.ED.FEVER ---
HPI - Fever General: Chief Complaint: Fever Stated Complaint: fever,N/V/D Time Seen by Provider: 07/11/23 11:43 Source: patient Mode of arrival: ambulatory History of Present Illness: 42-year-old female presents emergency room with cough congestion generalized body aches and headache with nausea vomiting and diarrhea for the last 2 days no anosmia. Cough is nonproductive. She reports generalized myalgias. MD elicited complaint: fever Onset (ago): day(s) (2) Associated symptoms: Reports chills, cough, diarrhea, headache(s), myalgias, nasal congestion, nausea and rhinorrhea; Deny abdominal pain, flank pain, chest pain, confusion, dysuria, extremity pain, night sweats, rash, short of breath, sinus pain, stiffness, sore throat, vaginal discharge, vomiting or weight loss Review of Systems Const: Reports: fever(s), chills, fatigue and malaise; Denies: night sweats ENMT: Reports: nasal congestion; Denies: sinus pain Card: Denies: chest pain Resp: Reports: dyspnea and non-productive cough; Denies: productive cough GI: Reports: nausea and diarrhea; Denies: abdominal pain or vomiting : Denies: flank pain, dysuria or vaginal discharge Musc: Denies: extremity pain Skin/Breast: Denies: rash or pruritus Neuro: Reports: headache(s); Denies: confusion PFSH ED PFSH: Medical History Essential hypertension LYNN (generalized anxiety disorder) GERD (gastroesophageal reflux disease) Surgical History History of bunionectomy History of cholecystectomy Family History Father No problems noted. Grandmother Diabetes Other Cancer Hypertension Myocardial infarction Stroke Social History Smoking and tobacco status: current every day smoker cigarettes Packs smoked per day: 0.5 Alcohol intake: current Alcohol intake frequency: few times a month Substance/Drug Use: never Physical Exam Const: COMMON NORMALS: no acute distress GENERAL APPEARANCE: cooperative and comfortable ORIENTATION/CONSCIOUSNESS: Yes awake, Yes oriented to person, Yes oriented to place and Yes oriented to time HENMT: COMMON NORMALS: normocephalic, atraumatic and hearing grossly normal bilaterally HEAD & SCALP: normocephalic and atraumatic Resp: COMMON NORMALS: normal respiratory effort, No retractions, No use of accessory muscles and clear to auscultation bilaterally AUSCULTATION: clear to auscultation bilaterally Cardio: COMMON NORMALS: regular rate, regular rhythm and No murmurs present (Cardio) RATE: regular rate RHYTHM: regular rhythm GI: COMMON NORMALS: Soft to palpation and No hepatosplenomegaly present AUSCULTATION: Yes normoactive bowel sounds PALPATION: Yes Soft to palpation, No Tenderness to palpation present (GI), No Guarding due to palpation present (GI) and Yes No hepatosplenomegaly present Extremity: COMMON NORMALS: normal to inspection, capillary refill normal, no clubbing, cyanosis or edema, no calf tenderness and no pedal edema Neuro: SENSORIUM/ORIENTATION: Yes oriented to person, Yes oriented to place and Yes oriented to time Skin: COMMON NORMALS: no rashes or lesions noted GENERAL SKIN EXAM: no rashes or lesions noted Course Vital Signs: Vital signs: Vital Signs Temperature 97.6 F 07/11/23 11:07 Pulse Rate 68 07/11/23 13:48 Respiratory Rate 18 07/11/23 11:07 Blood Pressure 132/83 07/11/23 12:30 Pulse Oximetry 100 07/11/23 13:48 Oxygen Delivery Me thod Room Air 07/11/23 11:07 MDM - Fever Medical Decision Making No significant findings on exam. Suspect patient has viral upper restaurant infection likely COVID patient discharged home COVID testing ordered we will contact with results she would like [employer] if it is positive. At the time I reviewed the chart and was preparing to sign off the COVID test did come back and it was positive we contact the patient will call in the [employer] however follow-up with primary care doctor as needed Medical Records I reviewed the patient's medical records. Lab Data I reviewed the patient's lab results. 07/11/23 11:16 07/11/23 11:16 Laboratory Results WBC 5.09 10^3/uL (3.29-11.43) 07/11/23 11:16 RBC 5.15 10^6/uL (3.85-5.65) 07/11/23 11:16 Hgb 14.20 g/dL (11.27-16.99) 07/11/23 11:16 Hct 44.6 % (36-47) 07/11/23 11:16 MCV 86.6 fl (85-98) 07/11/23 11:16 MCH 27.6 pg (27-33) 07/11/23 11:16 MCHC 31.8 g/dL (30-55) 07/11/23 11:16 RDW 13.2 % (12.1-15.1) 07/11/23 11:16 Plt Count 212 10^3/cmm (157-399) 07/11/23 11:16 MPV 10.9 fL (7.4-10.4) H 07/11/23 11:16 Neut % (Auto) 55.2 % 07/11/23 11:16 Lymph % (Auto) 22.0 % 07/11/23 11:16 Dunn % (Auto) 21.0 % 07/11/23 11:16 Eos % (Auto) 0.6 % 07/11/23 11:16 Baso % (Auto) 0.6 % 07/11/23 11:16 Neut # (Auto) 2.81 10^3/uL (1.8-7.7) 07/11/23 11:16 Lymph # (Auto) 1.1 10^3/uL (0.8-4.8) 07/11/23 11:16 Dunn # (Auto) 1.1 10^3/uL (0.2-0.9) H 07/11/23 11:16 Eos # (Auto) 0.0 10^3/uL (0.0-0.8) 07/11/23 11:16 Baso # (Auto) 0.0 10^3/uL (0.0-0.1) 07/11/23 11:16 Nucleated RBC % (auto) 0 % 07/11/23 11:16 Nucleated RBCs # 0.0 /100WBC 07/11/23 11:16 Sodium 141 mmol/L (136-145) 07/11/23 11:16 Potassium 3.7 mmol/L (3.5-5.1) 07/11/23 11:16 Chloride 105 mmol/L (98-107) 07/11/23 11:16 Carbon Dioxide 27 mmol/L (22-29) 07/11/23 11:16 Anion Gap 12.7 (5-19) 07/11/23 11:16 BUN 16 mg/dL (6-20) 07/11/23 11:16 Creatinine 0.8 mg/dL (0.5-0.9) 07/11/23 11:16 GFR Calculation 78.3 mL/min (90-130) L 07/11/23 11:16 Glucose 108 mg/dL (65-115) 07/11/23 11:16 Calculated Osmolality 294 mOsm/kg (285-295) 07/11/23 11:16 Calcium 8.5 mg/dL (8.5-10.5) 07/11/23 11:16 Total Bilirubin 0.2 mg/dL (0.15-1.2) 07/11/23 11:16 AST 21 U/L (0-32) 07/11/23 11:16 ALT 20 U/L (0-33) 07/11/23 11:16 Alkaline Phosphatase 87 U/L (35-105) 07/11/23 11:16 Total Protein 7.1 g/dL (6.6-8.7) 07/11/23 11:16 Albumin 4.3 g/dL (3.5-5.2) 07/11/23 11:16 Globulin 2.8 g/dL (1.3-4.6) 07/11/23 11:16 Lipase 33 U/L (13-60) 07/11/23 11:16 Urine Color Yellow (Yellow) 07/11/23 12:05 Urine Appearance Clear (CLEAR) 07/11/23 12:05 Urine pH 5 (5-7) 07/11/23 12:05 Ur Specific [place] 1.025 (1.005-1.030) 07/11/23 12:05 Urine Protein 1+ (Negative) H 07/11/23 12:05 Urine Glucose (UA) Norm (Normal) 07/11/23 12:05 Urine Ketones 1+ (Negative) H 07/11/23 12:05 Urine Blood Trace (Negative) H 07/11/23 12:05 Urine Nitrate Negative (Negative) 07/11/23 12:05 Urine Bilirubin 1+ (Negative) H 07/11/23 12:05 Urine Urobilinogen 1 mg/dL (Negative) H 07/11/23 12:05 Ur Leukocyte Esterase Trace (Negative) H 07/11/23 12:05 Urine RBC 0-4 /hpf (0-2) H 07/11/23 12:05 Urine WBC 5-10 /hpf (0-5) H 07/11/23 12:05 Ur Squamous Epith Cells 5-10 /hpf (0-5) H 07/11/23 12:05 Amorphous Sediment Not Reportable 07/11/23 12:05 Urine Bacteria Trace /hpf (NONE) 07/11/23 12:05 Urine Mucus 2+ /hpf 07/11/23 12:05 Coronavirus 229E (PCR) Not detected (NOT DETECT) 07/11/23 12:30 SARS-CoV-2 (PCR) Detected (NOT DETECT) A 07/11/23 12:30 No radiology studies performed this visit Discharge Plan Discharge Patient Disposition: Home Clinical Impression: Viral URI with cough, Suspected 2019 novel coronavirus infection Condition: Stable Prescriptions: No Action No Known Home Medications Discharge Orders: Discharge ED (Routine); Ordered 07/11/23 Ordered By: Bill Craven Referrals: Carolin Vasquez DO [Primary Care Provider] - Discharge Diet: Usual diet Discharge Activity: Increase activity as tolerated Patient Instructions: COVID-19 (Coronavirus Disease 2019) (ED), Opioid Safety, Pain Management Stand Alone Forms: Work/School Release Coding Level of Care Code 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
[2023-07-11 11:46] LABS: Alanine Aminotransferase 20 U/L (0-33); Albumin Level 4.3 g/dL (3.5-5.2); Alkaline Phosphatase 87 U/L (35-105); Anion Gap 12.7 (5-19); Aspartate Amino Transferase 21 U/L (0-32); Blood Urea Nitrogen 16 mg/dL (6-20); Calcium 8.5 mg/dL (8.5-10.5); Carbon Dioxide 27 mmol/L (22-29); Chloride 105 mmol/L (98-107); Globulin 2.8 g/dL (1.3-4.6); Glomerular Filtration Rate 78.3 mL/min (90-130); Glucose 108 mg/dL (65-115); Lipase 33 U/L (13-60); Osmolality Calculated 294 mOsm/kg (285-295); Potassium 3.7 mmol/L (3.5-5.1); Sodium 141 mmol/L (136-145); Total Bilirubin 0.2 mg/dL (0.15-1.2); Total Protein 7.1 g/dL (6.6-8.7)
[2023-07-11] MEDS: ondansetron 2 mg/ML SDV 2 mL 4 MG IVP (12:05)
[2023-07-11 12:06] VITALS: BP 153/90; PULSE 64; O2SAT 99
[2023-07-11] MEDS: sodium chloride 0.9% 1,000 ML 999 ML IV ×2 (12:06→12:54)
[2023-07-11 12:30] VITALS: BP 132/83; PULSE 60; O2SAT 98
[2023-07-11 12:37] LABS: Add Urine Culture? No; Add Urine Microscopic? YES; Bacteria Urine TRACE /hpf; Bilirubin Urine 1+ (Negative); Blood Urine Trace (Negative); Glucose Urine UA Norm (Normal); Ketones Urine 1+ (Negative); Leukocyte Esterase Urine Trace (Negative); Mucus Urine 2+ /hpf; Nitrate Urine Negative (Negative); Protein Urine 1+ (Negative); RBC Urine 0-4 /hpf (0-2); Specific Gravity, Urine 1.025 (1.005-1.030); Urine Appearance Clear (CLEAR); Urine Color Yellow (Yellow); Urobilinogen Urine 1 mg/dL (Negative); pH Urine 5 (5-7)
[2023-07-11 13:48] VITALS: PULSE 68; O2SAT 100
[2023-07-11 15:05] LABS: Adenovirus Not Detected (NOT DETECT); Chlamydia Pneumoniae Not Detected (NOT DETECT); Coronavirus 229E,HKU1,NL63,OC4 Not Detected (NOT DETECT); Human Metapneumovirus Not Detected (NOT DETECT); Human Rhinovirus/Enterovirus Not Detected (NOT DETECT); Influenza A Not Detected (NOT DETECT); Influenza A H1 Not Detected (NOT DETECT); Influenza A H1-2009 Not Detected (NOT DETECT); Influenza A H3 Not Detected (NOT DETECT); Influenza B Not Detected (NOT DETECT); Mycoplasma Pneumoniae Not Detected (NOT DETECT); Parainfluenza Virus Type 1 Not Detected (NOT DETECT); Parainfluenza Virus Type 2 Not Detected (NOT DETECT); Parainfluenza Virus Type 3 Not Detected (NOT DETECT); Parainfluenza Virus Type 4 Not Detected (NOT DETECT); Respiratory Syncytial Virus A Not Detected (NOT DETECT); Respiratory Syncytial Virus B Not Detected (NOT DETECT)
[2023-07-11 15:10] LABS: SARS-COV-2 Detected (NOT DETECT)
--- NOTE | 2023-07-11 15:18 | PC.NURSE ---
called PT with positive covid results. PT denied having any questions at that time.
== END 2023-07-11 13:49 | disposition home or self-care (01) ==
PROVIDERS: Physician Assistant; Emergency Provider Family Medicine; PCP Family Medicine
DX: U07.1 COVID-19 (principal); I10 Essential (primary) hypertension; F17.210 Nicotine dependence, cigarettes, uncomplicated
CPT/HCPCS: 36415; 80053; 81001; 83690; 85025; 87635; 96361; 96374; 99284; J2405; J7030

== ENCOUNTER 2023-12-06 09:47 | Emergency (ER) | payer BC, SELFPAY ==
[2023-12-06 09:53] VITALS: BP 139/83; PULSE 77; RESP 16; TEMP 36.6; O2SAT 98; BMI 34.1
--- NOTE | 2023-12-06 11:12 | ED_ITS ---
HPI - Dental/Oral 2 General: Chief complaint: Dental/Oral Stated complaint: left side neck pain Time Seen by Provider: 12/06/23 09:55 Source: patient Mode of arrival: ambulatory Limitations: no limitations History of Present Illness: Patient is a 43-year-old female presents to ED today with complaint of left- sided neck pain anteriorly she began noticing yesterday. She has not noticed any swelling. She states she does have a known decayed left lower molar that she thinks may be getting infected. She has not had any difficulty breathing or swallowing. No muffled voice or drooling. She has not been running fevers. She has no neurologic deficits. No midline neck pain or stiffness. Onset (ago): day(s) Duration: constant Severity: moderate Relieving factors: nothing Exacerbating factors: nothing Context: history of dental caries and poor dental care Associated symptoms: Reports other (L neck pain); Denies ear or mastoid pain, fever(s) or odynophagia Treatment prior to arrival: none Review of Systems 2 Const: Denies: fever(s), chills, body aches, fatigue or malaise Eyes: Denies: change in vision ENMT: Denies: throat pain, uvular edema, enlarged tonsils, odynophagia, oral sores, ear or mastoid pain, nasal discharge, nasal congestion or sinus pain Card: Denies: chest pain Resp: Denies: dyspnea Musc: Reports: neck pain Skin/Breast: Denies: rash Neuro: Denies: headache(s), dizziness or confusion PFSH ED 2 PFSH: Medical History Essential hypertension LYNN (generalized anxiety disorder) GERD (gastroesophageal reflux disease) Surgical History History of cholecystectomy History of bunionectomy Family History Father No problems noted. Grandmother Diabetes Other Cancer Hypertension Myocardial infarction Stroke Social History Smoking and tobacco/nicotine status: current every day tobacco/nicotine user cigarettes Packs smoked per day: 0.5 Alcohol intake: current Alcohol intake frequency: few times a month Substance/Drug Use: never Physical Exam 2 Const: COMMON NORMALS: no acute distress, patient oriented x3, no limitations, alert and well nourished HENMT: COMMON NORMALS: normocephalic, atraumatic, external ears normal, EAC's normal and TM's normal bilaterally HEAD & SCALP: normal to inspection, normocephalic and atraumatic FACE & SINUS: normal facial exam, sinuses nontender and face symmetric EXTERNAL EAR: Yes external ears normal, Yes mastoids normal and Yes no periauricular adenopathy EXTERNAL AUDITORY CANAL: EAC's normal TYMPANIC MEMBRANE: TM's normal bilaterally MOUTH: Normal oral and palatal mucosa present and lip normal TEETH & GINGIVA IMAGES: 1. decayed molar THROAT: posterior oropharynx normal and tonsils normal; no uvular edema Eye: COMMON NORMALS: Equal, round and reactive pupils present and EOMs intact bilaterally GENERAL EYE: appearance normal, both eyes and all related structures and normal light reflex PUPIL: Yes Equal, round and reactive pupils present DIRECT OPHTHALMOSCOPY: Yes normal light reflex Neck/C-Spine: COMMON NORMALS: full ROM, no lymphadenopathy, no meningeal signs and Thyroid normal GENERAL: Yes normal visual inspection, No anterior neck swelling and No submandibular swelling THYROID: Thyroid normal CERVICAL SPINE: Yes cervical ROM normal NECK IMAGES: 1. TTP without clinical/objective findings; no swelling or lymphadenopathy appreciated Lymph: LYMPHATIC: no lymphadenopathy noted Resp: COMMON NORMALS: normal respiratory effort Neuro: COMMON NORMALS: patient oriented x3 and CN's II-XII intact bilaterally SENSORIUM/ORIENTATION: Yes alert MENINGEAL SIGNS: Yes no meningeal signs Course 2 Vital Signs: Vital signs: Vital Signs Temperature 97.9 F 12/06/23 09:53 Pulse Rate 77 12/06/23 09:53 Respiratory Rate 16 12/06/23 09:53 Blood Pressure 139/83 12/06/23 09:53 Pulse Oximetry 98 12/06/23 09:53 Oxygen Delivery Me thod Room Air 12/06/23 09:53 MDM - Dental/Oral Medical Decision Making At this time I feel patient's symptoms are most likely secondary to her decayed molar. She has no signs or symptoms to suggest a deep space abscess, significant lymphadenopathy, arterial dissection, or other emergent process. Will go and place her on antibiotics and recommend follow-up with her dentist to soon as possible. Return ED precautions given. Medical Records I reviewed the patient's medical records. No radiology studies performed this visit Discharge Plan Discharge Patient Disposition: Home Clinical Impression: Neck pain on right side, Dental caries Condition: Stable Prescriptions: New clindamycin HCl 300 mg capsule 300 mg PO Q6H 7 Days Qty: 28 0RF Discharge Orders: Discharge ED (Routine); Ordered 12/06/23 Ordered By: Carol Rosas Referrals: Carolin Vasquez DO [Primary Care Provider] - Activity Restrictions/Additional Instructions: As we discussed please follow-up with primary care in a week or so if symptoms do not seem to be improving. As we discussed you need to return the emergency department for any significant neck swelling, difficulty breathing, difficulty swallowing or controlling your saliva, fevers, severe headache, or any other concerns you may have. 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
== END 2023-12-06 11:27 | disposition home or self-care (01) ==
PROVIDERS: Emergency Provider Physician Assistant; PCP Family Medicine
DX: M54.2 Cervicalgia (principal); K02.9 Dental caries, unspecified; I10 Essential (primary) hypertension; F17.210 Nicotine dependence, cigarettes, uncomplicated
CPT/HCPCS: 99283

== ENCOUNTER 2024-01-09 16:40 | Emergency (ER) | payer BC, SELFPAY ==
[2024-01-09 16:51] VITALS: BP 164/94; PULSE 74; RESP 18; TEMP 36.8; O2SAT 98; BMI 30.9
--- NOTE | 2024-01-09 16:59 | ED_ITS ---
HPI - Wound/Laceration General: Chief Complaint: Wound/Laceration Stated Complaint: fall, left side facial pains Time Seen by Provider: 01/09/24 16:57 History of Present Illness: 43-year-old female comes in today with a brasions to the left face and left shoulder pain. Patient endorses that she was intoxicated last night when she became ill and vomited. Patient states that she was getting back into the pickup and went to reach to get a drink and when she went back turned around to get the door closed that she lost her balance and fell out of the pickup truck. Patient reports landing on her left side. Patient reports left shoulder pain with some mild swelling and abrasions to the face. Patient denies loss of consciousness. Patient appears nontoxic. Review of Systems General: Reports: 10 or more systems reviewed and unremarkable except in HPI and below Musc: Reports: joint pain (Left shoulder) Skin/Breast: Reports: new lesions (Facial abrasions) [facility] ED PFSH: Medical History (Updated 01/09/24 @ 18:15 by DEMAR Lemus) Essential hypertension LYNN (generalized anxiety disorder) GERD (gastroesophageal reflux disease) Surgical History History of cholecystectomy History of bunionectomy Family History Father No problems noted. Grandmother Diabetes Other Cancer Hypertension Myocardial infarction Stroke Social History Smoking and tobacco/nicotine status: current every day tobacco/nicotine user cigarettes Packs smoked per day: 0.5 Alcohol intake: current Alcohol intake frequency: few times a month Substance/Drug Use: never Physical Exam Const: COMMON NORMALS: alert HENMT: COMMON NORMALS: normocephalic HEAD & SCALP: normocephalic FACE & SINUS: abrasion (Left face) and Facial tenderness on exam of face and sinuses Neck/C-Spine: COMMON NORMALS: no meningeal signs Resp: COMMON NORMALS: normal respiratory effort Cardio: COMMON NORMALS: regular rate and regular rhythm RATE: regular rate RHYTHM: regular rhythm GI: COMMON NORMALS: Soft to palpation and non-tender PALPATION: Yes Soft to palpation : COMMON NORMALS: Yes no CVA tenderness BLADDER/KIDNEY EXAM: Yes no CVA tenderness Back/Pelvis: COMMON NORMALS: no CVA tenderness Extremity: COMMON NORMALS: full ROM LEFT UPPER EXTREMITY: Yes shoulder joint (Anterior tenderness and mild swelling joint line) Neuro: SENSORIUM/ORIENTATION: Yes alert MENINGEAL SIGNS: Yes no meningeal signs Skin: COMMON NORMALS: turgor normal GENERAL SKIN EXAM: turgor normal Course Vital Signs: Vital signs: Vital Signs Temperature 98.2 F 01/09/24 16:51 Pulse Rate 74 01/09/24 16:51 Respiratory Rate 18 01/09/24 16:51 Blood Pressure 164/94 01/09/24 16:51 Pulse Oximetry 98 01/09/24 16:51 Oxygen Delivery Me thod Room Air 01/09/24 16:51 MDM - Wound/Laceration Medical Decision Making 43-year-old female comes in for evaluation of injuries secondary to a fall. Patient had slipped and fell out of a open pickup door landing on her left shoulder and striking her face against the gravel. Patient has some mild swelling and tenderness to the left shoulder joint line. Patient also has significant abrasions to the face. No deformity is noted. Pupils are equal and reactive. Patient has good eye tracking. Bilateral TMs are clear. Posterior pharynx is normal. Differential diagnosis includes but not limited to fracture, contusions, abrasion, rotator cuff injury. X-ray of the shoulder and facial bones noted no obvious fractures or injuries. Reviewed exam with patient recommended treatment with bacitracin ointment for abrasions. Recommended Tylenol and ibuprofen otherwise. Tetanus was updated. Patient reported understanding of care plan and need for follow-up. XR interpretation done by ED provider, pending radiology final review Discharge Plan Discharge Patient Disposition: Home Clinical Impression: Abrasion of face Qualifiers: Encounter type: initial encounter Qualified Code(s): S00.81XA - Abrasion of other part of head, initial encounter Contusion of left shoulder Qualifiers: Encounter type: initial encounter Qualified Code(s): S40.012A - Contusion of left shoulder, initial encounter Condition: Stable Prescriptions: New bacitracin 500 unit/gram ointment 1 applic topical BID Qty: 14.2 0RF Discharge Orders: Discharge ED (Routine); Ordered 01/09/24 Ordered By: Yusef Price Referrals: Carolin Vasquez DO [Primary Care Provider] - Discharge Diet: Usual diet Discharge Activity: Increase activity as tolerated Patient Instructions: Abrasion (ED), Shoulder Pain (ED) Activity Restrictions/Additional Instructions: Gently wash abrasions daily and apply bacitracin antibiotic ointment. 1-2 times daily until healed. Use acetaminophen and ibuprofen for pain. Activity with the rest shoulder as needed. Follow-up with primary care for further instructions. Return to ED for new concerns. 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
--- NOTE | 2024-01-09 17:10 | XRR_ITS ---
PROCEDURE INFORMATION: Exam: XR Facial Bones, Minimum of 3 Views, Complete Exam date and time: 01/09/2024 5:49 PM Age: 43 years old Clinical indication: Injury or trauma; Other: Lt side facial pain/lt shoulder pain after fall TECHNIQUE: Imaging protocol: XR of the facial bones, minimum of 3 views. Complete exam. COMPARISON: CT cervical spin wo con* [id number] 12/01/2017 1:02 PM FINDINGS: Sinuses: Well aerated. No opacification. Bones/joints: No fracture. Soft tissues: Unremarkable. XR/XR facial bones min 3V* [id number] IMPRESSION: No visible fracture.
--- NOTE | 2024-01-09 17:10 | XRR_ITS ---
PROCEDURE INFORMATION: Exam: XR Left Shoulder Exam date and time: 01/09/2024 5:49 PM Age: 43 years old Clinical indication: Injury or trauma; Other: Lt shoulder/lt side facial pain; Patient HX: Lt side facial pain/lt shoulder pain after fall TECHNIQUE: Imaging protocol: Radiologic exam of the left shoulder. Views: 2 or more views. COMPARISON: CT angio chest PE protcl [id number] 04/15/2022 5:44 PM FINDINGS: Bones/joints: Normal. Soft tissues: Normal. XR/XR shoulder LT min 2V* [id number] IMPRESSION: No acute findings.
[2024-01-09] MEDS: tetanus-dipt-pertussis 0.5 mL SDV IM (17:17)
[2024-01-09 18:24] VITALS: BP 164/94; PULSE 74; RESP 18; TEMP 36.8; O2SAT 98
== END 2024-01-09 18:25 | disposition home or self-care (01) ==
PROVIDERS: Emergency Provider Nurse Practitioner Family; PCP Family Medicine
DX: S00.81XA Abrasion of other part of head, initial encounter (principal); S40.012A Contusion of left shoulder, initial encounter; I10 Essential (primary) hypertension; F17.210 Nicotine dependence, cigarettes, uncomplicated; W17.89XA Other fall from one level to another, initial encounter; Z23 Encounter for immunization
CPT/HCPCS: 70150; 73030; 90471; 90715; 99284

== ENCOUNTER → 2024-03-09 11:14 | Outpatient (BNVA) | payer BC, SELFPAY | PROVIDERS: PCP Family Medicine; Visit Provider Nurse Practitioner Women's Health | DX: N92.0 Excessive and frequent menstruation with regular cycle (principal); N94.6 Dysmenorrhea, unspecified | CPT/HCPCS: 85025 ==

== ENCOUNTER → 2024-04-04 10:58 | Outpatient (BNVA) | payer BC, SELFPAY | PROVIDERS: PCP Family Medicine; Visit Provider Nurse Practitioner Women's Health | DX: N92.6 Irregular menstruation, unspecified (principal) | CPT/HCPCS: 76830 ==

== ENCOUNTER → 2024-04-12 11:31 | Outpatient (BNVA) | payer BC, SELFPAY | PROVIDERS: PCP Family Medicine; Visit Provider Obstetrics & Gynecology | DX: Z01.419 Encounter for gynecological examination (general) (routine) without abnormal findings (principal) | CPT/HCPCS: 87624 ==

== ENCOUNTER 2024-05-25 05:56 | Day surgery (SDC) | payer BC, SELFPAY ==
[2024-05-25] VITALS (10 sets, daily range): BP systolic 118–146; BP diastolic 51–77; PULSE 59–65; RESP 12–19; TEMP 36.5–36.7; O2SAT 96–100; BMI 26.8
--- NOTE | 2024-05-25 03:29 | W.PM.OPSFHP ---
Same Day Surgery H&P Indication for Procedure/HPI DATE OF PROCEDURE: May 25, 2024 CHIEF COMPLAINT/INDICATIONFOR SURGICAL PROCEDURE: menorrhagia PREOP DIAGNOSIS: abnormal uterine bleeding, menorrhagia PLANNED PROCEDURE: Operation Date: 05/25/24 07:00 Proposed Procedures p Hysteroscopy Hysteroscopy w/ Endometrial Sampling 73202, N94.6(Not Applicable) - Leandro Christianson MD s Possible enometrial Poylpectomy(Not Applicable) - Leandro Christianson MD 43 y.o. G0 periods very heavy and painful pelvic sono showed 1 cm endometrial polyp now scheduled for hysteroscopy, endometrial sampling, possible endometrial polypectomy Medications/Allergies* Home Medications Medication Instructions Recorded Confirmed Type No Known Home Medications 03/09/24 05/24/24 History Allergies/Adverse Reactions Allergy/AdvReac Type Severity Reaction Status Date / Time Penicillins Allergy ADR-Itching Verified 05/24/24 08:42 lisinopril AdvReac Mild ADR-Cough Verified 05/24/24 08:42 Pertinent History/Comorbid Conditions* Medical History (Updated 03/09/24 @ 14:13 by Justyna Hanna NP) Essential hypertension LYNN (generalized anxiety disorder) GERD (gastroesophageal reflux disease) Surgical History (Updated 11/20/19 @ 09:59 by Carolin Vasquez DO) History of cholecystectomy History of bunionectomy Family History (Updated 03/09/24 @ 10:54 by Carmen Last LPN) Heart disease Mother Grandmother Grandfather Hypertension Mother Denies family history of Colon cancer Ovarian cancer Prostate cancer Diabetes Dementia Hypercholesteremia Breast cancer Uterine cancer Thyroid disease Stroke Social History Smoking and tobacco/nicotine status: current every day tobacco/nicotine user Pertinent Exam Findings alert, oriented x 3, clear to auscultation bilaterally and regular rate & rhythm Recommendations Surgery/Procedure today Coding Level of Care Code Acute Code for Chg Fwd Time Spent (min) 20
[2024-05-25] MEDS: sodium chloride 0.9% 1,000 ML 30 ML IV (06:20)
[2024-05-25] MEDS: scopolamine 1.5 Patch 1 PATCH TRANSDERMA (06:20)
--- NOTE | 2024-05-25 06:39 | ANES.PREANE2 ---
Pre-Anesthetic Assessment Height/Weight: Height 1.65 m Weight 73.028 kg Temp Pulse Resp BP Pulse Ox O2 Del Method 98.0 F 64 17 129/74 98 Room Air 05/25/24 06:11 05/25/24 06:11 05/25/24 06:11 05/25/24 06:11 05/25/24 06:11 05/25/24 06:11 Preop Diagnosis: abnormal uterine bleeding Operation Date: 05/25/24 07:00 Proposed Procedures p Hysteroscopy Hysteroscopy w/ Endometrial Sampling 18370, N94.6(Not Applicable) - Leandro Christianson MD s Possible enometrial Poylpectomy(Not Applicable) - Leandro Christianson MD Familial anesthetic complications: None Was Beta Boris taken within 24 hours: N/A Was Clonidine taken within 24 hours: N/A Last intake: Intake Last Liquid Date 05/24/24 Last Liquid Time 22:30 Last Solid Date 05/24/24 Last Solid Time 22:00 Social Tobacco and No alcohol Exam alert, oriented x 3, clear to auscultation bilaterally and regular rate & rhythm Airway Mallampati: Class II Dentition: full CV/HEM Hypertension GI Gastroesophageal Reflux Disease Anesthetic Plan ASA status: 2 Anesthesia: General Risk of > 500 ml blood loss (7ml/kg in children): No Medications/Allergies Home Medications Medication Instructions Recorded Confirmed Last Taken Type No Known Home Medications 03/09/24 05/24/24 Unknown History Allergies Allergy/AdvReac Type Severity Reaction Status Date / Time Penicillins Allergy ADR-Itching Verified 05/24/24 08:42 lisinopril AdvReac Mild ADR-Cough Verified 05/24/24 08:42 Current Medications Generic Name Dose Route Start Last Admin Trade Name Freq PRN Reason Stop Dose Admin Sodium Chloride 1,000 mls @ 30 mls/hr 05/25/24 06:15 05/25/24 06:20 Sodium Chloride 0.9% IV 05/26/24 06:14 30 mls/hr .Q24H PAVEL Administration PFSH Anesthesia Medical History Essential hypertension LYNN (generalized anxiety disorder) GERD (gastroesophageal reflux disease) Surgical History History of cholecystectomy History of bunionectomy Family History Mother Heart disease Hypertension Grandmother Heart disease Grandfather Heart disease Denies family history of Colon cancer Ovarian cancer Prostate cancer Diabetes Dementia Hypercholesteremia Breast cancer Uterine cancer Thyroid disease Stroke Social History Smoking and tobacco/nicotine status: current every day tobacco/nicotine user Data Anesthesia Cardiac Studies: Holter Monitor 03/01/20
--- NOTE | 2024-05-25 06:46 | W.PM.OPSUD ---
Surgery/Procedure H&P Update DATE OF PROCEDURE: May 25, 2024 DATE H&P PERFORMED: 05/25/24 H&P UPDATE INFORMATION: I have reviewed H&P completed within last 30 days, I have examined patient prior to procedure and No changes to prior documentation PREOP DIAGNOSIS: abnormal uterine bleeding PLANNED PROCEDURE: Operation Date: 05/25/24 07:00 Proposed Procedures p Hysteroscopy Hysteroscopy w/ Endometrial Sampling 74920, N94.6(Not Applicable) - Leandro Christianson MD s Possible enometrial Poylpectomy(Not Applicable) - Leandro Christianson MD
[2024-05-25 07:20] LABS: OR HCG Qualitative Urine Negative (Negative)
--- NOTE | 2024-05-25 08:50 | ANE.PACU2 ---
Inpatient post-anesthesia follow up: Airway intact: Yes Vital signs: Temperature 97.7 F Pulse Rate 65 Respiratory Rate 17 Blood Pressure 118/69 Pulse Oximetry 100 Oxygen Delivery Me thod Room Air Oxygen Flow Rate Fraction of Inspir ed Oxygen Hydration adequate: Yes Nausea and vomiting: No Pain level: 1 Mental status: Baseline
--- NOTE | 2024-05-25 09:03 | PM.OP ---
Operative Report Date of procedure: May 25, 2024 Pre-op diagnosis: abnormal uterine bleeding, menorrhagia endometrial polyp seen on pelvic sono Post-op diagnosis: same Post-op diagnosis: same Post-op findings: one 2 cm endometrial polyp Minimal endometrial tissue Procedure done: Hysteroscopy Endometrial sampling and polypectomy with Myosure Implants: none Specimens removed/disposition: endometrial tissue Surgeon: Leandro Christianson MD Anesthesia: MAC Estimated blood loss (mL): 0 Complications: none Findings: one 2 cm endometrial polyp Minimal endometrial tissue Condition: stable Disposition: PACU Brief History: 43 y.o. with heavy menstrual bleeding and endometrial polyp seen on pelvic sono Procedure: Informed consent signed. Patient was taken to the operating room. Anesthesia was induced. Patient was placed in dorsolithotomy position, prepped and draped for hysteroscopy. A bivalve speculum was placed in the vagina. The cervix and vagina were normal. The anterior lip of the cervix was grasped with a sharp-toothed tenaculum. The cervix was serially dilated with Hegar dilators. The uterus was sounded to 8 cm. A hysteroscope was placed into the endometrial cavity. There was one 3 cm smooth-appearing endometrial polyp. Minimal endometrial tissue was seen. The endocervical canal was normal. The endometrial cavity was otherwise normal. A Myosure was then inserted and the endometrial polyp was removed and sent to pathology. Endometrial sampling was also done. The endometrial cavity was seen to be intact. The hysteroscope and Myosure were then removed. Endometrial tissue was sent to pathology. The sharp-toothed tenaculum was removed. There was no bleeding from the endometrial cavity or cervix. The patient was then placed supine and awakened and taken to the PACU. Postop condition: stable EBL: none Sponge and instruments counts were normal x 2 Complications: none
== END 2024-05-25 08:50 | disposition home or self-care (01) ==
PROVIDERS: PCP Family Medicine; Visit Provider Obstetrics & Gynecology
PROC: 0UJD8ZZ Inspection of Uterus and Cervix, Via Natural or Artificial Opening Endoscopic (ICD-10-PCS; CPT 58555; principal; 2024-05-25 07:00)
PROC: (CPT 58558; 2024-05-25 07:00)
DX: N84.0 Polyp of corpus uteri (principal); I10 Essential (primary) hypertension; K21.9 Gastro-esophageal reflux disease without esophagitis
CPT/HCPCS: 58558; 81025; 88305; J2405; J2704; J3010; J7030

== ENCOUNTER 2024-07-14 11:44 | Emergency (ER) | payer BC, SELFPAY ==
[2024-07-14 12:23] VITALS: BP 136/86; PULSE 79; RESP 16; TEMP 36.8; O2SAT 97; BMI 28.3
--- NOTE | 2024-07-14 13:13 | W.ED.ABDPA2 ---
HPI - Abdominal Pain General: Chief Complaint: Abdominal Pain Stated Complaint: Right abdominal pain Time Seen by Provider: 07/14/24 13:07 History of Present Illness: 43-year-old female presents emergency room complaining of abdominal pain that began overnight. No vomiting no diarrhea no dysuria urgency. She actually states the pain feels better when she presses in her right lower quadrant. No hematochezia or melena. Her bowel movements have been regular. Associated Symptoms: Reports nausea; Denies chills, diarrhea, dysuria, fever(s) and vomiting Related Data Date of Last Menstrual Period: 07/06/24 Previous Rx's Medication Instructions Recorded promethazine 25 mg tablet 25 mg PO Q6H PRN nausea and 07/14/24 vomiting #20 tabs tramadol 50 mg tablet 50 mg PO Q6H PRN pain #10 tabs 07/14/24 Allergies Allergy/AdvReac Type Severity Reaction Status Date / Time Penicillins Allergy ADR-Itching Verified 07/14/24 12:30 lisinopril AdvReac Mild ADR-Cough Verified 07/14/24 12:30 Review of Systems Const: Denies: fever(s) or chills Card: Denies: chest pain Resp: Denies: dyspnea GI: Reports: abdominal pain and nausea; Denies: vomiting or diarrhea : Denies: dysuria, urinary frequency or urinary urgency Musc: Denies: neck pain or back pain Skin/Breast: Denies: rash PFSH ED PFSH: Medical History Essential hypertension LYNN (generalized anxiety disorder) GERD (gastroesophageal reflux disease) Surgical History History of cholecystectomy History of bunionectomy Family History Mother Heart disease Hypertension Grandmother Heart disease Grandfather Heart disease Denies family history of Colon cancer Ovarian cancer Prostate cancer Diabetes Dementia Hypercholesteremia Breast cancer Uterine cancer Thyroid disease Stroke Social History Smoking and tobacco/nicotine status: current every day tobacco/nicotine user Female Reproductive History: Date of last menstrual period: 07/06/24 Physical Exam Const: GENERAL APPEARANCE: cooperative ORIENTATION/CONSCIOUSNESS: Yes awake, Yes oriented to person, Yes oriented to place and Yes oriented to time HENMT: COMMON NORMALS: normocephalic, atraumatic and hearing grossly normal bilaterally HEAD & SCALP: normocephalic and atraumatic Resp: COMMON NORMALS: normal respiratory effort, No retractions, No use of accessory muscles and clear to auscultation bilaterally AUSCULTATION: clear to auscultation bilaterally Cardio: COMMON NORMALS: regular rate, regular rhythm and No murmurs present (Cardio) RATE: regular rate RHYTHM: regular rhythm GI: COMMON NORMALS: No hepatosplenomegaly present AUSCULTATION: Yes normoactive bowel sounds PALPATION: Yes Tenderness to palpation present (GI) Details: LLQ, No Guarding due to palpation present (GI) and Yes No hepatosplenomegaly present Extremity: COMMON NORMALS: normal to inspection, capillary refill normal, no clubbing, cyanosis or edema, no calf tenderness and no pedal edema Neuro: SENSORIUM/ORIENTATION: Yes oriented to person, Yes oriented to place and Yes oriented to time Skin: COMMON NORMALS: no rashes or lesions noted GENERAL SKIN EXAM: no rashes or lesions noted Course Vital Signs: Vital signs: Vital Signs Temperature 98.2 F 07/14/24 12:23 Pulse Rate 79 07/14/24 12:23 Respiratory Rate 16 07/14/24 12:23 Blood Pressure 136/86 07/14/24 12:23 Pulse Oximetry 97 07/14/24 12:23 Oxygen Delivery Me thod Room Air 07/14/24 12:23 MDM - Abdominal Pain Medical Decision Making CT does not show any acute pathology. No leukocytosis. There is no pelvic fluid. No cystitis. Discharge patient home clear liquid promethazine as needed tramadol as needed if symptoms worsen or change recheck Medical Records I reviewed the patient's medical records. Lab Data I reviewed the patient's lab results. 07/14/24 13:11 07/14/24 13:11 Labs/Radiology: Radiology Impressions Abdomen/Pelvis CT 07/14/24 13:19 IMPRESSION: 1. Normal appendix. No evidence of acute appendicitis. 2. Prior cholecystectomy. 3. No hydronephrosis in either kidney. 4. Small LEFT ovarian cyst measuring 1.3 cm. No free fluid in the pelvis. 5. LEFT unilateral pars defect with slight anterolisthesis L5 on S1. Laboratory Results WBC 8.44 10^3/uL (3.29-11.43) 07/14/24 13:11 RBC 5.15 10^6/uL (3.85-5.65) 07/14/24 13:11 Hgb 15.00 g/dL (11.27-16.99) 07/14/24 13:11 Hct 45.8 % (36-47) 07/14/24 13:11 MCV 88.9 fl (85-98) 07/14/24 13:11 MCH 29.1 pg (27-33) 07/14/24 13:11 MCHC 32.8 g/dL (30-55) 07/14/24 13:11 RDW 13.6 % (12.1-15.1) 07/14/24 13:11 Plt Count 252 10^3/cmm (157-399) 07/14/24 13:11 MPV 10.1 fL (7.4-10.4) 07/14/24 13:11 Neut % (Auto) 71.0 % 07/14/24 13:11 Lymph % (Auto) 17.4 % 07/14/24 13:11 [place] % (Auto) 10.5 % 07/14/24 13:11 Eos % (Auto) 0.1 % 07/14/24 13:11 Baso % (Auto) 0.6 % 07/14/24 13:11 Neut # (Auto) 5.99 10^3/uL (1.8-7.7) 07/14/24 13:11 Lymph # (Auto) 1.5 10^3/uL (0.8-4.8) 07/14/24 13:11 [place] # (Auto) 0.9 10^3/uL (0.2-0.9) 07/14/24 13:11 Eos # (Auto) 0.0 10^3/uL (0.0-0.8) 07/14/24 13:11 Baso # (Auto) 0.1 10^3/uL (0.0-0.1) 07/14/24 13:11 Nucleated RBC % (auto) 0 % 07/14/24 13:11 Nucleated RBCs # 0.0 /100WBC 07/14/24 13:11 Sodium 137 mmol/L (136-145) 07/14/24 13:11 Potassium 4.1 mmol/L (3.5-5.1) 07/14/24 13:11 Chloride 100 mmol/L (98-107) 07/14/24 13:11 Carbon Dioxide 26 mmol/L (22-29) 07/14/24 13:11 Anion Gap 15.1 (5-19) 07/14/24 13:11 BUN 15 mg/dL (6-20) 07/14/24 13:11 Creatinine 0.5 mg/dL (0.5-0.9) 07/14/24 13:11 GFR Calculation 134.0 mL/min (90-130) H 07/14/24 13:11 Glucose 98 mg/dL (65-115) 07/14/24 13:11 Calculated Osmolality 285 mOsm/kg (285-295) 07/14/24 13:11 Calcium 9.3 mg/dL (8.5-10.5) 07/14/24 13:11 Total Bilirubin 0.2 mg/dL (0.15-1.2) 07/14/24 13:11 AST 17 U/L (0-32) 07/14/24 13:11 ALT 14 U/L (0-33) 07/14/24 13:11 Alkaline Phosphatase 77 U/L (35-105) 07/14/24 13:11 Total Protein 7.1 g/dL (6.6-8.7) 07/14/24 13:11 Albumin 4.3 g/dL (3.5-5.2) 07/14/24 13:11 Globulin 2.8 g/dL (1.3-4.6) 07/14/24 13:11 Lipase 28 U/L (13-60) 07/14/24 13:11 HCG, Qual Negative (Negative) 07/14/24 13:11 Urine Color Yellow (Yellow) 07/14/24 13:31 Urine Appearance Clear (CLEAR) 07/14/24 13:31 Urine pH 6.5 (5-7) 07/14/24 13:31 Ur Specific Page 1.008 (1.005-1.030) 07/14/24 13:31 Urine Protein Negative (Negative) 07/14/24 13:31 Urine Glucose (UA) Negative (Normal) 07/14/24 13:31 Urine Ketones Negative (Negative) 07/14/24 13:31 Urine Blood Trace (Negative) A 07/14/24 13:31 Urine Nitrate Negative (Negative) 07/14/24 13:31 Urine Bilirubin Negative (Negative) 07/14/24 13:31 Urine Urobilinogen 0.2 mg/dL (Negative) 07/14/24 13:31 Ur Leukocyte Esterase Negative (Negative) 07/14/24 13:31 Urine RBC 0-2 /hpf (0-2) 07/14/24 13:31 Urine WBC 0-5 /hpf (0-5) 07/14/24 13:31 Ur Squamous Epith Cells 0-5 /hpf (0-5) 07/14/24 13:31 Amorphous Sediment Not Reportable 07/14/24 13:31 Urine Bacteria None seen /hpf (NONE) 07/14/24 13:31 Hyaline Casts 0-4 /lpf H 07/14/24 13:31 All radiology interpretation(s) finalized by discharge Discharge Plan Discharge Patient Disposition: Home Clinical Impression: Abdominal pain Condition: Stable Prescriptions: New promethazine 25 mg tablet 25 mg PO Q6H PRN (Reason: nausea and vomiting) Qty: 20 0RF tramadol 50 mg tablet 50 mg PO Q6H PRN (Reason: pain) Qty: 10 0RF Discharge Orders: Discharge ED (Routine); Ordered 07/14/24 Ordered By: Bill Craven Discharge Diet: Clear Liquid Discharge Activity: Increase activity as tolerated Patient Instructions: Abdominal Pain (ED), Opioid Safety, Pain Management Activity Restrictions/Additional Instructions: Thank you for choosing [facility] for your healthcare needs today. It is very important that you follow up as instructed or that you return to the Emergency Department should you have concerns or if your condition changes or worsens in any way. You are seen in the emergency room for abdominal pain your white count was normal urine did not show signs infection chemistry panel and liver were normal. CT did not show any acute pathologic findings. Recommend clear liquid diet for the next 2 to 3 days advance as tolerated. You can use tramadol and promethazine as needed for pain. 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
[2024-07-14 13:18] LABS: Basophils # 0.1 10^3/uL (0.0-0.1); Basophils % 0.6 %; Eosinophils % 0.1 %; Hematocrit 45.8 % (36-47); Lymphocytes # 1.5 10^3/uL (0.8-4.8); Lymphocytes % 17.4 %; Mean Corpuscular HGB Conc 32.8 g/dL (30-55); Mean Corpuscular Hemoglobin 29.1 pg (27-33); Mean Corpuscular Volume 88.9 fl (85-98); Mean Platelet Volume 10.1 fL (7.4-10.4); Monocytes # 0.9 10^3/uL (0.2-0.9); Monocytes % 10.5 %; Neutrophils # 5.99 10^3/uL (1.8-7.7); Nucleated Red Blood Cells % 0 %; Platelet Count 252 10^3/cmm (157-399); Red Blood Count 5.15 10^6/uL (3.85-5.65); Red Cell Distribution Width 13.6 % (12.1-15.1); White Blood Count 8.44 10^3/uL (3.29-11.43)
--- NOTE | 2024-07-14 13:19 | CT_ITS ---
WS: [id number] CT ABDOMEN PELVIS TECHNIQUE: Contrast-enhanced CT of the abdomen and pelvis with coronal and sagittal reformatted image s. CLINICAL INFORMATION: abd pain COMPARISON: None. DLP: 554.[address] scans at [facility] use at least one of these dose optimization techniques: automated e xposure control; mA and/or kV adjustment per patient size (includes targeted exams where dose is matc hed to clinical indication); or iterative reconstruction. FINDINGS: Prior cholecystectomy. Normal liver. Normal spleen. Normal GE junction. Subsegmental atelec tasis in the lung bases. Noncalcified nodule in the RIGHT middle lobe measuring 3 mm. Normal spleen. Adrenal glands are normal. Normal renal parenchymal enhancement. Normal portal vein and splenic vein. Normal caliber abdominal aorta. No hydronephrosis in either kidney. Multi follicular ovaries bilaterally. No significant free fluid in the pelvis. Physiologic uterine en hancement. Normal sigmoid colon. Normal appendix in the RIGHT lower quadrant. No evidence of acute ap pendicitis. LEFT ovarian cyst measuring 1.3 cm. LEFT unilateral pars defects L5-S1 with slight anterolisthesis L5 on S1. CT/CT abdomen pelvis w con* [id number] IMPRESSION: 1. Normal appendix. No evidence of acute appendicitis. 2. Prior cholecystectomy. 3. No hydronephrosis in either kidney. 4. Small LEFT ovarian cyst measuring 1.3 cm. No free fluid in the pelvis. 5. LEFT unilateral pars defect with slight anterolisthesis L5 on S1.
[2024-07-14 13:28] LABS: HCG, Serum Qual Negative (Negative)
[2024-07-14 13:30] VITALS: BP 156/76; PULSE 68; O2SAT 95
[2024-07-14 13:35] LABS: Alanine Aminotransferase 14 U/L (0-33); Albumin Level 4.3 g/dL (3.5-5.2); Alkaline Phosphatase 77 U/L (35-105); Anion Gap 15.1 (5-19); Aspartate Amino Transferase 17 U/L (0-32); Blood Urea Nitrogen 15 mg/dL (6-20); Calcium 9.3 mg/dL (8.5-10.5); Carbon Dioxide 26 mmol/L (22-29); Chloride 100 mmol/L (98-107); Creatinine Clr Calc Pharmacy 142.2497; Globulin 2.8 g/dL (1.3-4.6); Glucose 98 mg/dL (65-115); Lipase 28 U/L (13-60); Osmolality Calculated 285 mOsm/kg (285-295); Potassium 4.1 mmol/L (3.5-5.1); Sodium 137 mmol/L (136-145); Total Bilirubin 0.2 mg/dL (0.15-1.2); Total Protein 7.1 g/dL (6.6-8.7)
[2024-07-14] MEDS: iohexol 350 mg/mL 500 mL Btl (per mL) IV (13:57)
[2024-07-14 14:00] VITALS: PULSE 63; O2SAT 99
[2024-07-14 14:15] LABS: Bilirubin Urine Negative (Negative); Blood Urine Trace (Negative); Glucose Urine UA Negative (Normal); Ketones Urine Negative (Negative); Leukocyte Esterase Urine Negative (Negative); Nitrate Urine Negative (Negative); Protein Urine Negative (Negative); Specific Gravity, Urine 1.008 (1.005-1.030); Urine Appearance Clear (CLEAR); Urine Color Yellow (Yellow); Urobilinogen Urine 0.2 mg/dL (Negative); pH Urine 6.5 (5-7)
[2024-07-14 14:18] LABS: Add Urine Microscopic? YES; Bacteria Urine None Seen /hpf; Hyaline Casts Urine 0-4 /lpf; RBC Urine 0-2 /hpf (0-2); Squamous Epithelial Cell Urine 0-5 /hpf (0-5); WBC Urine 0-5 /hpf (0-5)
[2024-07-14 14:30] VITALS: BP 146/93; PULSE 65; O2SAT 97
[2024-07-14 15:00] VITALS: BP 141/82; PULSE 64; O2SAT 98
[2024-07-14 15:52] VITALS: BP 124/81; PULSE 64; O2SAT 98
== END 2024-07-14 15:54 | disposition home or self-care (01) ==
PROVIDERS: Physician Assistant; Emergency Provider Family Medicine
DX: R10.9 Unspecified abdominal pain (principal); I10 Essential (primary) hypertension; Z72.0 Tobacco use
CPT/HCPCS: 36415; 74177; 80053; 81001; 83690; 84703; 85025; 99285

== ENCOUNTER 2024-08-09 11:26 | Emergency (ER) | payer BC, SELFPAY ==
[2024-08-09 11:29] VITALS: PULSE 77; RESP 16; TEMP 36.9; O2SAT 97
[2024-08-09 14:00] VITALS: BP 136/66; PULSE 71; RESP 16; TEMP 36.7; O2SAT 96
--- NOTE | 2024-08-09 14:20 | ED_ITS ---
HPI - Skin/Abscess/Foreign Bdy 2 General: Chief complaint: Skin/Abscess/Foreign Body Stated complaint: Rash on back, burn Time Seen by Provider: 08/09/24 14:20 Source: patient Mode of arrival: ambulatory Limitations: no limitations History of Present Illness: Patient is a nice 43-year-old female presents to ED today with a complaint of a rash starting to the left side of her back and radiating/wrapping around onto her side and left breast-noticed 1 to 2 days ago first starting on her back. She states the rash feels like [id number] and rojo. She was reportedly seen at urgent care and told if it is shingles the provider is not able to see you (she believes they implied the provider might be ). Patient does remember having varicella as a child. She has no other complaints or symptoms at this time apart from the painful rash. complaint: rash Onset (ago): day(s) Tetanus up to date: yes Location: chest and back Severity: severe Quality: burning and stabbing Pain Consistency: constant Relieving factors: none Exacerbating factors: none Context: none Associated symptoms: Reports no associated symptoms; Deny chills, fever(s) or vomiting Treatments prior to arrival: none Related Data Previous Rx's Medication Instructions Recorded hydrocodone 5 mg-acetaminophen 325 1 tab PO Q6H PRN pain #14 tabs 08/09/24 mg tablet prednisone 10 mg tablet 10 mg PO DAILY 7 days #27 tabs 08/09/24 valacyclovir 1 gram tablet 1,000 mg PO Q8H 10 days #30 tabs 08/09/24 (Valtrex) Allergies Allergy/AdvReac Type Severity Reaction Status Date / Time Penicillins Allergy ADR-Itching Verified 08/09/24 08:20 lisinopril AdvReac Mild ADR-Cough Verified 08/09/24 08:20 Review of Systems 2 Const: Denies: fever(s), chills, body aches, fatigue or malaise Card: Denies: chest pain Resp: Denies: dyspnea GI: Denies: abdominal pain, vomiting or diarrhea : Denies: flank pain or dysuria Musc: Denies: neck pain, back pain, extremity pain, extremity swelling, joint pain or joint swelling Skin/Breast: Reports: rash Neuro: Denies: headache(s), numbness in extremities, weakness in extremities or sensory changes PFSH ED 2 PFSH: Medical History Essential hypertension LYNN (generalized anxiety disorder) GERD (gastroesophageal reflux disease) Surgical History History of cholecystectomy History of bunionectomy Family History Mother Heart disease Hypertension Grandmother Heart disease Grandfather Heart disease Denies family history of Colon cancer Ovarian cancer Prostate cancer Diabetes Dementia Hypercholesteremia Breast cancer Uterine cancer Thyroid disease Stroke Social History Smoking and tobacco/nicotine status: current every day tobacco/nicotine user Physical Exam 2 Const: COMMON NORMALS: no acute distress, average body habitus, patient oriented x3, no limitations, healthy appearing, alert and well nourished G ENERAL APPEARANCE: cooperative Neck/C-Spine: COMMON NORMALS: no lymphadenopathy Resp: COMMON NORMALS: normal respiratory effort and clear to auscultation bilaterally AUSCULTATION: clear to auscultation bilaterally Cardio: COMMON NORMALS: regular rate and regular rhythm RATE: regular rate RHYTHM: regular rhythm : COMMON NORMALS: Yes no CVA tenderness BLADDER/KIDNEY EXAM: Yes no CVA tenderness Back/Pelvis: COMMON NORMALS: no CVA tenderness, thoracic and lumbar spine normal to inspection, no thoracic nor lumbar tenderness and thoraco-lumbar ROM normal BACK IMAGE (FEMALE): 1. erythematous clustered rash starting to left of midline thoracic back and radiates around to lateral chest/abdomen and onto lateral aspect of left breast consistent with herpes zoster Extremity: GENERAL: Yes normal exam except as noted Neuro: COMMON NORMALS: patient oriented x3, moves all extremities, no focal motor deficits and no sensory deficits noted SENSORIUM/ORIENTATION: Yes alert Skin: RASHES: rashes noted (see above) Course 2 Vital Signs: Vital signs: Vital Signs Temperature 98.1 F 08/09/24 14:00 Pulse Rate 71 08/09/24 14:00 Respiratory Rate 16 08/09/24 14:00 Blood Pressure 136/66 08/09/24 14:00 Pulse Oximetry 96 08/09/24 14:00 Oxygen Delivery Me thod Room Air 08/09/24 14:00 MDM - Skin/Abscess/Foreign Bdy Medicial Decision Making Patient has uncomplicated herpes zoster. She will be placed on valacyclovir, prednisone, pain medications. Have case management set her up with a primary care provider in case lesions do not improve. Medical Records I reviewed the patient's medical records. No radiology studies performed this visit Discharge Plan Discharge Patient Disposition: Home Clinical Impression: Shingles Qualifiers: Herpes zoster complications: without complications Qualified Code(s): B02.9 - Zoster without complications Condition: Stable Prescriptions: New valacyclovir [Valtrex] 1 gram tablet 1,000 mg PO Q8H 10 Days Qty: 30 0RF prednisone 10 mg tablet 10 mg PO DAILY 7 Days Qty: 27 0RF Rx Instructions: 6 tabs on days 1-2, 5 tabs on days 3, 4 tabs on day 4, 3 tabs on day 5, 2 tabs on day 6, 1 tab on day 7 hydrocodone-acetaminophen 5-325 mg tablet 1 tab PO Q6H PRN (Reason: pain) Qty: 14 0RF Discharge Orders: Discharge ED (Routine); Ordered 08/09/24 Ordered By: Carol Rosas Patient Instructions: Shingles (ED), Shingles Activity Restrictions/Additional Instructions: As we discussed, please fill your medications and start them immediately. I will have case management set you up with a primary care provider for further follow-up in case lesions do not improve on medication. May return to the emergency department for worsening rash, uncontrollable pain, or any other concerns you may have. 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
[2024-08-09 14:49] VITALS: BP 143/82; PULSE 75; O2SAT 99
--- NOTE | 2024-08-10 07:33 | DCPLANNER ---
message sent to [facility] for er f/u
== END 2024-08-09 14:50 | disposition home or self-care (01) ==
PROVIDERS: Emergency Provider Physician Assistant
DX: B02.9 Zoster without complications (principal)
CPT/HCPCS: 99283

== ENCOUNTER 2024-11-09 08:50 | Observation (INO) | payer BC, SELFPAY ==
--- NOTE | 2024-11-08 19:05 | W.PM.OPSFHP ---
Same Day Surgery H&P Indication for Procedure/HPI DATE OF PROCEDURE: November 08, 2024 CHIEF COMPLAINT/INDICATIONFOR SURGICAL PROCEDURE: heavy menstrual bleeding dysmenorrhea PREOP DIAGNOSIS: heavy menstrual bleeding, dysmenorrhea PLANNED PROCEDURE: Operation Date: 11/09/24 07:00 Proposed Procedures p Total Abdominal Hysterectomy 32107, N94.6(Not Applicable) - Leandro Christianson MD 43 y.o. G0 with chronic menorrhagia and dysmenorrhea now scheduled for hysterectomy Medications/Allergies* Home Medications Medication Instructions Recorded Confirmed Type No Known Home Medications 11/08/24 11/08/24 History Allergies/Adverse Reactions Allergy/AdvReac Type Severity Reaction Status Date / Time Penicillins Allergy ADR-Itching Verified 11/08/24 10:48 lisinopril AdvReac Mild ADR-Cough Verified 11/08/24 10:48 Pertinent History/Comorbid Conditions* Medical History (Updated 08/17/24 @ 00:02 by MELLISSA Jones) Essential hypertension LYNN (generalized anxiety disorder) GERD (gastroesophageal reflux disease) Surgical History (Updated 11/20/19 @ 09:59 by Carolin Vasquez DO) History of cholecystectomy History of bunionectomy Family History (Updated 03/09/24 @ 10:54 by Carmen Last LPN) Heart disease Mother Grandmother Grandfather Hypertension Mother Denies family history of Colon cancer Ovarian cancer Prostate cancer Diabetes Dementia Hypercholesteremia Breast cancer Uterine cancer Thyroid disease Stroke Social History Smoking and tobacco/nicotine status: current every day tobacco/nicotine user Pertinent Exam Findings alert, oriented x 3, clear to auscultation bilaterally and regular rate & rhythm Recommendations Surgery/Procedure today Coding Level of Care Code Acute Code for Chg Fwd Time Spent (min) 20
[2024-11-09] VITALS (16 sets, daily range): BP systolic 109–167; BP diastolic 52–131; PULSE 60–88; RESP 15–20; TEMP 36.1–37.2; O2SAT 93–99; BMI 27.4
[2024-11-09] MEDS: sodium chloride 0.9% 1,000 ML 30 ML IV (06:19)
--- NOTE | 2024-11-09 06:22 | ANES.PREANE2 ---
Pre-Anesthetic Assessment Height/Weight: Height 5 ft 5 in Weight 165 lb Temp Pulse Resp BP Pulse Ox O2 Del Method 97 F L 77 18 122/82 98 Room Air 11/09/24 06:08 11/09/24 06:08 11/09/24 06:08 11/09/24 06:08 11/09/24 06:08 11/09/24 06:15 Preop Diagnosis: heavy menstrual bleeding Operation Date: 11/09/24 07:00 Proposed Procedures p Total Abdominal Hysterectomy 96779, N94.6(Not Applicable) - Leandro Christianson MD Was Beta Boris taken within 24 hours: N/A Was Clonidine taken within 24 hours: N/A Last intake: Intake Last Liquid Date 11/08/24 Last Liquid Time 23:00 Last Solid Date 11/08/24 Last Solid Time 23:00 Social Tobacco and No alcohol Exam alert, oriented x 3, clear to auscultation bilaterally and regular rate & rhythm Airway Submandibular: within normal limits Cervical ROM: within normal limits Mallampati: Class II Dentition: full Comments: Comments: Large gap in front teeth Anesthetic Plan ASA status: 2 Anesthesia: General Other: No prior issues with anesthesia NPO since yesterday History of GERD, diet controlled Hypertension history. No BP meds, preop BP 122/82 METs greater than 4 Type and screen performed Plan for general anesthesia Medications/Allergies Home Medications Medication Instructions Recorded Confirmed Last Taken Type No Known Home Medications 11/08/24 11/09/24 Unknown History Allergies Allergy/AdvReac Type Severity Reaction Status Date / Time Penicillins Allergy ADR-Itching Verified 11/08/24 10:48 lisinopril AdvReac Mild ADR-Cough Verified 11/08/24 10:48 Current Medications Generic Name Dose Route Start Last Admin Trade Name Freq PRN Reason Stop Dose Admin Sodium Chloride 1,000 mls @ 30 mls/hr 11/09/24 06:00 11/09/24 06:19 Sodium Chloride 0.9% IV 11/10/24 05:59 30 mls/hr .Q24H PAVEL Administration PFSH Anesthesia Medical History (Updated 08/17/24 @ 00:02 by MELLISSA Jones) Essential hypertension LYNN (generalized anxiety disorder) GERD (gastroesophageal reflux disease) Surgical History History of cholecystectomy History of bunionectomy Family History Mother Heart disease Hypertension Grandmother Heart disease Grandfather Heart disease Denies family history of Colon cancer Ovarian cancer Prostate cancer Diabetes Dementia Hypercholesteremia Breast cancer Uterine cancer Thyroid disease Stroke Social History Smoking and tobacco/nicotine status: current every day tobacco/nicotine user Data Anesthesia Cardiac Studies: Holter Monitor 03/01/20
[2024-11-09 06:29] LABS: OR HCG Qualitative Urine Negative (Negative)
--- NOTE | 2024-11-09 06:53 | W.PM.OPSUD ---
Surgery/Procedure H&P Update DATE OF PROCEDURE: November 09, 2024 DATE H&P PERFORMED: 11/08/24 H&P UPDATE INFORMATION: I have reviewed H&P completed within last 30 days, I have examined patient prior to procedure and No changes to prior documentation PREOP DIAGNOSIS: heavy menstrual bleeding PLANNED PROCEDURE: Operation Date: 11/09/24 07:00 Proposed Procedures p Total Abdominal Hysterectomy 73873, N94.6(Not Applicable) - Leandro Christianson MD
[2024-11-09] MEDS: ceFAZolin 2,000 mg SDV 2000 MG IVP (07:05)
[2024-11-09] MEDS: BUPivacaine liposome 13.3 mg/mL SDV 20 mL 266 MG INFILTRATI (07:45)
[2024-11-09] MEDS: BUPivacaine 0.5% INJ 30 mL INJECTION (07:46)
--- NOTE | 2024-11-09 09:20 | P.OP_ITS ---
Operative Report Date of procedure: November 09, 2024 Pre-op diagnosis: chronic menorrhagia and dysmenorrhea Post-op diagnosis: same Post-op findings: normal uterus, tubes, and ovaries Normal and intact bladder Procedure done: Total abdominal hysterectomy Implants: none Specimens removed/disposition: uterus Surgeon: Cj Newman MD Reverberatory Skimmer: Leandro Christianson MD Anesthesia: General Estimated blood loss (mL): 25 Complications: none Findings: normal uterus, tubes, and ovaries Normal and intact bladder Condition: stable Disposition: PACU Brief History: 44 y.o. G0 with chronic menorrhagia and dysmenorrhea Procedure: Informed consent obtained. The patient was taken to the operating room and placed supine on the table. General endotracheal anesthesia was induced. The abdomen was prepped and draped in the usual sterile fashion. A pfannenstiel incision was made and carried down through skin and subcutaneous tissue and fascia. The fascia was sharply incised. The rectus muscles were and the abdomen was entered bluntly in the midline. The pelvic contents were visualized and examined. An [place]-O retractor was placed. The bowels were packed out of the way. The Ligasure device was used throughout for vessel sealing and cutting. The hysterectomy was begun by dividing and ligating the round ligaments bilaterally. The infundibulopelvic ligaments were divided and skeletonized bilaterally. The ovaries were preserved by dividing the uterus from the uteroovarian ligaments. The vesicouterine peritoneal fold was incised in a transverse curvilinear fashion and sharply dissected downward mobilizing the bladder off the lower uterine segment. The uterine vessels were skeletonized and bilaterally divided and ligated. The procedure was carried down on both sides of the uterus until the cardinal uterosacral ligament was reached. The cervix was then incised. The vaginal cuff was identified and the mucosa was from the cervix. In this fashion, the uterus was removed leaving the vaginal cuff. The vaginal cuff was identified and the mucosa was sewn with O-Vicryl. The pelvis was inspected and irrigated. There was no bleeding. The abdominal packs were removed as was the retractor. The fascia was then closed with a continuous stitch of O-Vicryl. The subcutaneous tissue was irrigated and inspected for hemostasis. The skin was then reapproximated using Insorb absorbable subcuticular skin valente. The patient was then placed supine, extubated, and taken to the recovery room. Postoperative condition: stable EBL: 25 cc Complications: none Sponge, needle, instruments counts were correct x two.
[2024-11-09] MEDS: ketorolac 30 mg/mL INJ IVP ×3 (10:29→22:55)
[2024-11-09] MEDS: dextrose 5%-lactated ringers 1,000 ML 125 ML IV (10:29)
[2024-11-09] MEDS: docusate sodium 100 mg Capsule PO ×2 (10:29→21:02)
[2024-11-10 05:13] VITALS: BP 121/71; PULSE 79; RESP 16; TEMP 36.9; O2SAT 97
[2024-11-10 05:25] LABS: Mean Corpuscular HGB Conc 32.5 g/dL (30-55); Mean Corpuscular Hemoglobin 28.7 pg (27-33); Mean Corpuscular Volume 88.2 fl (85-98); Mean Platelet Volume 10.2 fL (7.4-10.4); Platelet Count 220 10^3/cmm (157-399); Red Blood Count 4.08 10^6/uL (3.85-5.65); Red Cell Distribution Width 13.2 % (12.1-15.1); White Blood Count 19.52 10^3/uL (3.29-11.43)
[2024-11-10] MEDS: ibuprofen 800 mg tablet PO (08:11)
[2024-11-10] MEDS: HYDROcodone-acetaminophen 5-325 mg Tablet PO (08:11)
[2024-11-10] MEDS: docusate sodium 100 mg Capsule PO (08:11)
[2024-11-10] MEDS: simethicone 80 mg Chew PO ×2 (08:14→11:32)
[2024-11-10 08:25] VITALS: BP 110/60; PULSE 83; TEMP 36.8; O2SAT 96
[2024-11-10 11:25] VITALS: BP 117/73; PULSE 83; TEMP 36.7
[2024-11-10 11:37] VITALS: BP 117/73; PULSE 83; TEMP 36.7; O2SAT 98
== END 2024-11-10 11:38 | disposition home or self-care (01) ==
LOC: OBGYN 09:45
PROVIDERS: Student in an Organized Health Care Education/Training Program; Admitting Provider Obstetrics & Gynecology; Visit Provider Obstetrics & Gynecology
PROC: 0UT90ZZ Resection of Uterus, Open Approach (ICD-10-PCS; CPT 58150; principal; 2024-11-09 07:00)
DX: N87.9 Dysplasia of cervix uteri, unspecified (principal); N72 Inflammatory disease of cervix uteri; N80.03 Adenomyosis of the uterus; D25.9 Leiomyoma of uterus, unspecified; N92.0 Excessive and frequent menstruation with regular cycle; N94.6 Dysmenorrhea, unspecified; K21.9 Gastro-esophageal reflux disease without esophagitis; I10 Essential (primary) hypertension; F41.1 Generalized anxiety disorder; F17.200 Nicotine dependence, unspecified, uncomplicated; Z90.49 Acquired absence of other specified parts of digestive tract; Z79.899 Other long term (current) drug therapy
CPT/HCPCS: 58150; 36415; 51702; 81025; 85027; 86850; 86900; 88307; C9290; G0378; J0690; J1100; J1171; J1885; J2250; J2405; J2704; J2710; J3010; J3490; J7030; J7121

== ENCOUNTER 2025-06-20 08:56 | Outpatient (CLI) | payer BC, SELFPAY ==
--- NOTE | 2025-06-20 09:40 | MM_ITS ---
WS: [id number] BILATERAL SCREENING DIGITAL TOMOSYNTHESIS MAMMOGRAM WITH CAD HISTORY: screening COMPARISON: 12/08/2018 Bilateral CC and MLO views with tomosynthesis and synthetic mammography submitted. Computer aided detection analyzed. Breast composition: The breasts are heterogeneously dense, which may obscure small masses. No suspicious masses, microcalcifications or architectural distortion. Focal asymmetries in the upper outer quadrant of the RIGHT breast are reidentified. No interval change since 2019. No suspicious grouping of calcifications. No mass or distortion. MM/MM scr tomosynthesis [id number] IMPRESSION: BI-RADS: 2 - Benign FOLLOW UP: 1 Year Follow-up
--- NOTE | 2025-06-20 10:45 | US_ITS ---
WS: [id number] ULTRASOUND SOFT TISSUES RIGHT upper extremity. HISTORY: R bicep strain COMPARISON: None available. TECHNIQUE: 2-D and color Doppler imaging is submitted. Ultrasound is directed along the anterior RIGHT upper extremity in the area of directed by the patient. There is no fluid collection or mass. No retraction of the biceps tendon. US/US soft tissue/extremity [id number] IMPRESSION: Negative soft tissue ultrasound along the RIGHT upper extremity biceps.
== END 2025-06-20 08:57 | disposition home or self-care (01) ==
LOC: RAD 08:57
PROVIDERS: PCP Family Medicine; Visit Provider Family Medicine
DX: S46.211A Strain of muscle, fascia and tendon of other parts of biceps, right arm, initial encounter (principal); Z12.39 Encounter for other screening for malignant neoplasm of breast; Z12.31 Encounter for screening mammogram for malignant neoplasm of breast; X58.XXXA Exposure to other specified factors, initial encounter; R92.333 Mammographic heterogeneous density, bilateral breasts
CPT/HCPCS: 76882; 77063; 77067

== ENCOUNTER 2025-09-03 13:11 | Emergency (ER) | payer BC, SELFPAY ==
[2025-09-03 13:14] VITALS: BP 146/77; PULSE 75; RESP 17; TEMP 36.8; O2SAT 98; BMI 26.3
[2025-09-03 13:48] LABS: Hematocrit 44.3 % (36-47); Hemoglobin 14.50 g/dL (11.27-16.99); Mean Corpuscular HGB Conc 32.7 g/dL (30-55); Mean Corpuscular Hemoglobin 28.5 pg (27-33); Mean Corpuscular Volume 87.2 fl (85-98); Nucleated Red Blood Cells % 0 %; Platelet Count 268 10^3/cmm (157-399); Red Blood Count 5.08 10^6/uL (3.85-5.65); White Blood Count 12.09 10^3/uL (3.29-11.43)
[2025-09-03 14:00] LABS: HCG, Serum Qual Negative (Negative)
[2025-09-03 14:04] LABS: Alanine Aminotransferase 11 U/L (0-33); Albumin Level 4.2 g/dL (3.5-5.2); Alkaline Phosphatase 69 U/L (35-105); Anion Gap 14.1 (5-19); Aspartate Amino Transferase 13 U/L (0-32); Blood Urea Nitrogen 12 mg/dL (6-20); Calcium 9.4 mg/dL (8.5-10.5); Carbon Dioxide 25 mmol/L (22-29); Chloride 101 mmol/L (98-107); Globulin 2.5 g/dL (1.3-4.6); Glucose 94 mg/dL (65-115); Osmolality Calculated 282 mOsm/kg (285-295); Potassium 4.1 mmol/L (3.5-5.1); Sodium 136 mmol/L (136-145); Total Protein 6.7 g/dL (6.6-8.7)
--- NOTE | 2025-09-03 14:54 | ED_ITS ---
HPI - Back Pain/Injury 2 General: Chief Complaint: Back Pain/Injury Stated Complaint: back pain and abd pain Time Seen by Provider: 09/03/25 14:41 Source: patient Mode of arrival: ambulatory Limitations: no limitations History of Present Illness: Patient is a 45-year-old female presents to ED today with a complaint of lower back pain as well as suprapubic abdominal pain. She feels like symptoms started yesterday. No known injury or trauma. She states pain is located to her lower back with no radiation into her buttocks or lower extremities. She states it radiates straight through into her lower abdomen/suprapubic region. She does complain of some urinary frequency but has not complained of any dysuria, urgency/hesitancy, hematuria. Patient states she underwent hysterectomy back in October. No fevers. She does not complain of nausea, vomiting, changes in bowel movements. No history of ureter or kidney stones. Patient states she feels like she can get in certain positions that somewhat helped her discomfort but that it never fully goes away. MD elicited complaint: back pain and other (abdominal pain) Onset (ago): day(s) (yesterday) Severity: moderate Similar Symptoms Previously: No Location: lumbar spine Radiation: abdomen Exacerbating factors: movement Relieving factors: other (certain positions) Associated symptoms: Reports abdominal pain; Deny chills, change in bowel habits, dysuria, fatigue, fever(s), nausea, urinary urgency or vomiting Work related injury: No Related Data Previous Rx's ?Medication ?Instructions ?Recorded diclofenac sodium 1 % topical gel 2 g topical QID #100 grams 05/17/25 (Arthritis Pain (diclofenac)) cyclobenzaprine 5 mg tablet 5 mg PO TID PRN muscle spa #20 06/06/25 tabs Allergies Allergy/AdvReac Type Severity Reaction Status Date / Time Penicillins Allergy ADR-Itching Verified 06/12/25 10:48 lisinopril AdvReac Mild ADR-Cough Verified 06/12/25 10:48 Review of Systems 2 Const: Denies: fever(s), chills, body aches, fatigue or malaise Card: Denies: chest pain Resp: Denies: dyspnea GI: Reports: abdominal pain; Denies: nausea, vomiting, diarrhea, constipation, change in bowel habits, hematochezia or melena : Reports: urinary frequency; Denies: flank pain, difficulty voiding, dysuria, urinary urgency, genital pruritis, vaginal odor, vaginal bleeding or vaginal discharge Musc: Reports: back pain; Denies: neck pain, extremity pain, extremity swelling, joint pain, joint swelling or joint redness Skin/Breast: Denies: rash Neuro: Denies: headache(s), numbness in extremities, weakness in extremities, sensory changes or dizziness PFSH ED 2 PFSH: Medical History Overweight (BMI 25.0-29.9) LYNN (generalized anxiety disorder) Surgical History History of hysterectomy History of cholecystectomy History of bunionectomy Family History Mother Heart disease Hypertension Grandmother Heart disease Grandfather Heart disease Denies family history of Colon cancer Ovarian cancer Prostate cancer Diabetes Dementia Hypercholesteremia Breast cancer Uterine cancer Thyroid disease Stroke Social History Smoking and tobacco/nicotine status: current every day tobacco/nicotine user Alcohol intake: current Alcohol intake frequency: holidays/special occasions only Substance/Drug Use: never Physical Exam 2 Const: COMMON NORMALS: no acute distress, average body habitus, patient oriented x3, no limitations, alert and well nourished GENERAL APPEARANCE: c ooperative HENMT: COMMON NORMALS: normocephalic and atraumatic HEAD & SCALP: normal to inspection, normocephalic and atraumatic Eye: COMMON NORMALS: no scleral icterus Neck/C-Spine: COMMON NORMALS: full ROM, no lymphadenopathy, supple and no meningeal signs Chest: COMMONS NORMALS: normal inspection of the chest Resp: COMMON NORMALS: normal respiratory effort and clear to auscultation bilaterally AUSCULTATION: clear to auscultation bilaterally Cardio: COMMON NORMALS: regular rate and regular rhythm RATE: regular rate RHYTHM: regular rhythm GI: COMMON NORMALS: Normal to inspection, nondistended, normoactive bowel sounds present, Soft to palpation, No hepatosplenomegaly present and no masses INSPECTION: Yes normal to inspection AUSCULTATION: Yes normoactive bowel sounds PALPATION: Yes Soft to palpation, Yes Tenderness to palpation present (GI) (max tenderness to suprapubic; tender across lower abdomen), No Guarding due to palpation present (GI), No Rigid due to palpation and Yes No hepatosplenomegaly present : COMMON NORMALS: Yes no CVA tenderness BLADDER/KIDNEY EXAM: Yes no CVA tenderness Back/Pelvis: COMMON NORMALS: no CVA tenderness THORACIC SPINE/UPPER BACK: N o thoracic spinal tenderness LUMBAR SPINE/LOWER BACK: No ROM limited, Yes pain with ROM, Yes lumbar spinal tenderness, Yes paraspinal muscle tenderness, No paraspinal muscle spasm, No mass present and Yes straight leg raise negative bilaterally PELVIS: Yes buttocks normal and No sciatic notch tenderness S ACROILIAC JOINTS: Yes SI joints normal SACRUM: no tenderness COCCYX: no tenderness Extremity: COMMON NORMALS: normal to inspection, full ROM, capillary refill normal, no joint enlargement, no clubbing, cyanosis or edema, no calf tenderness and no pedal edema GENERAL: Yes normal exam except as noted Neuro: LEANNE COMA SCALE: document GCS findings [place] coma scale eye opening: Spontaneous [place] coma scale verbal response: Orientated [place] coma scale motor response: Obey commands [place] coma scale total score: 15 COMMON NORMALS: patient oriented x3, moves all extremities, no focal motor deficits, no sensory deficits noted and gait normal SENSORIUM/ORIENTATION: Yes alert M ENINGEAL SIGNS: Yes no meningeal signs MOTOR EXAM: 5/5 motor strength present throughout Skin: COMMON NORMALS: no rashes or lesions noted GENERAL SKIN EXAM: no rashes or lesions noted Course 2 Vital Signs: Vital signs: Vital Signs Temperature 98.2 F 09/03/25 13:14 Pulse Rate 75 09/03/25 13:14 Respiratory Rate 17 09/03/25 13:14 Blood Pressure 135/61 09/03/25 16:14 Pulse Oximetry 99 09/03/25 16:14 Oxygen Delivery Me thod Room Air 09/03/25 14:59 MDM - Back Pain/Injury Medical Decision Making Patient is a 45-year-old female here for lower back pain that she feels like radiates into her lower/suprapubic abdomen. Vital signs are stable. She clinically appears in no acute distress. Blood work overall is unremarkable. UA with hematuria but no evidence for infection. She is not complaining of dysuria, frequency/urgency. No flank pain. CT scan ultimately showing no acute findings. They did comment on an ovoid structure in her left adnexa that they thought was probably her left ovary however a pelvic ultrasound may be helpful to evaluate for adnexal mass. I do not feel this needs to be done emergently and she can follow-up with primary care can order this as an outpatient if pain does not improve. Degenerative changes were noted in her back. At this time, I will outpatient discharge from the emergency department. We did discuss signs and symptoms that should prompt her to come back for reevaluation. Differential Diagnosis Likely lumbar radiculopathy, strain of lumbar region and pyelonephritis Medical Records I reviewed the patient's medical records. Labs I reviewed the patient's lab results. 09/03/25 13:43 09/03/25 13:43 Radiology Impressions Abdomen/Pelvis CT 09/03/25 15:20 IMPRESSION: 1. No acute findings. 2. Status post hysterectomy since the prior study. 3. Ovoid 3.9 x 3.7 x 4.5 cm structure in the left adnexa, likely representing the left ovary. Pelvic ultrasound may be helpful to evaluate for adnexal mass. 4. Mild degenerative disc disease and spondylosis involving the lumbar spine with disc bulges at L4-L5 and L5-S1. If clinically indicated, MRI may be helpful for further evaluation. Laboratory Results WBC 12.09 10^3/uL (3.29-11.43) H 09/03/25 13:43 RBC 5.08 10^6/uL (3.85-5.65) 09/03/25 13:43 Hgb 14.50 g/dL (11.27-16.99) 09/03/25 13:43 Hct 44.3 % (36-47) 09/03/25 13:43 MCV 87.2 fl (85-98) 09/03/25 13:43 MCH 28.5 pg (27-33) 09/03/25 13:43 MCHC 32.7 g/dL (30-55) 09/03/25 13:43 RDW 12.7 % (12.1-15.1) 09/03/25 13:43 Plt Count 268 10^3/cmm (157-399) 09/03/25 13:43 MPV 9.9 fL (7.4-10.4) 09/03/25 13:43 Neut % (Auto) 70.5 % 09/03/25 13:43 Lymph % (Auto) 20.3 % 09/03/25 13:43 [place] % (Auto) 7.3 % 09/03/25 13:43 Eos % (Auto) 0.7 % 09/03/25 13:43 Baso % (Auto) 0.9 % 09/03/25 13:43 Neut # (Auto) 8.52 10^3/uL (1.8-7.7) H 09/03/25 13:43 Lymph # (Auto) 2.5 10^3/uL (0.8-4.8) 09/03/25 13:43 [place] # (Auto) 0.9 10^3/uL (0.2-0.9) 09/03/25 13:43 Eos # (Auto) 0.1 10^3/uL (0.0-0.8) 09/03/25 13:43 Baso # (Auto) 0.1 10^3/uL (0.0-0.1) 09/03/25 13:43 Nucleated RBC % (auto) 0 % 09/03/25 13:43 Nucleated RBCs # 0.0 /100WBC 09/03/25 13:43 Sodium 136 mmol/L (136-145) 09/03/25 13:43 Potassium 4.1 mmol/L (3.5-5.1) 09/03/25 13:43 Chloride 101 mmol/L (98-107) 09/03/25 13:43 Carbon Dioxide 25 mmol/L (22-29) 09/03/25 13:43 Anion Gap 14.1 (5-19) 09/03/25 13:43 BUN 12 mg/dL (6-20) 09/03/25 13:43 Creatinine 0.5 mg/dL (0.5-0.9) 09/03/25 13:43 GFR Calculation 132.8 mL/min (90-130) H 09/03/25 13:43 Glucose 94 mg/dL (65-115) 09/03/25 13:43 Calculated Osmolality 282 mOsm/kg (285-295) L 09/03/25 13:43 Calcium 9.4 mg/dL (8.5-10.5) 09/03/25 13:43 Total Bilirubin 0.2 mg/dL (0.15-1.2) 09/03/25 13:43 AST 13 U/L (0-32) 09/03/25 13:43 ALT 11 U/L (0-33) 09/03/25 13:43 Alkaline Phosphatase 69 U/L (35-105) 09/03/25 13:43 Total Protein 6.7 g/dL (6.6-8.7) 09/03/25 13:43 Albumin 4.2 g/dL (3.5-5.2) 09/03/25 13:43 Globulin 2.5 g/dL (1.3-4.6) 09/03/25 13:43 HCG, Qual Negative (Negative) 09/03/25 13:43 Urine Color Yellow (Yellow) 09/03/25 14:45 Urine Appearance Clear (CLEAR) 09/03/25 14:45 Urine pH 6.0 (5-7) 09/03/25 14:45 Ur Specific [place] 1.012 (1.005-1.030) 09/03/25 14:45 Urine Protein Negative (Negative) 09/03/25 14:45 Urine Glucose (UA) Negative (Normal) 09/03/25 14:45 Urine Ketones Negative (Negative) 09/03/25 14:45 Urine Blood 2+ (Negative) A 09/03/25 14:45 Urine Nitrate Negative (Negative) 09/03/25 14:45 Urine Bilirubin Negative (Negative) 09/03/25 14:45 Urine Urobilinogen 0.2 mg/dL (Negative) 09/03/25 14:45 Ur Leukocyte Esterase Negative (Negative) 09/03/25 14:45 Urine RBC 0-2 /hpf (0-2) 09/03/25 14:45 Urine WBC 0-5 /hpf (0-5) 09/03/25 14:45 Ur Squamous Epith Cells 0-5 /hpf (0-5) 09/03/25 14:45 Amorphous Sediment Not Reportable 09/03/25 14:45 Urine Bacteria None seen /hpf (NONE) 09/03/25 14:45 Hyaline Casts 0-4 /lpf H 09/03/25 14:45 All radiology interpretation(s) finalized by discharge Discharge Plan Discharge Patient Disposition: Home Clinical Impression: Suprapubic abdominal pain Lower back pain Qualifiers: Chronicity: acute Back pain laterality: midline Sciatica presence: without sciatica Qualified Code(s): M54.50 - Low back pain, unspecified Condition: Stable Prescriptions: No Action cyclobenzaprine 5 mg tablet 5 mg PO TID PRN (Reason: muscle spasm) Qty: 20 0RF diclofenac sodium [Arthritis Pain (diclofenac)] 1 % gel 2 g topical QID Qty: 100 1RF Discharge Orders: Discharge ED (Routine); Ordered 09/03/25 Ordered By: Carol Rosas Referrals: René Frazier MD [Primary Care Provider, [facility]] Patient Instructions: Abdominal Pain (ED), Patient Portal & Rafi Instructions Activity Restrictions/Additional Instructions: As discussed, I would like you to follow-up with your primary care provider within a week or so for reevaluation. We discussed labs here as well as your urine that showed a little bit of blood but no overwhelming evidence of infection. CT scan essentially was unremarkable. We did talk about a structure seen in your left adnexa that was likely an ovary but how a pelvic ultrasound may be helpful to evaluate for an adnexal mass. You can discuss this with primary care upon follow-up. You may return to the emergency department at anytime for worsening or uncontrollable pain, fevers, generally feeling worse or unwell, or any other concerns you may have. I hope you begin to feel better soon. Print Language: Swedish Coding Level of Care Code ED [employer] T[employer] for [employer]
[2025-09-03 14:59] VITALS: BP 154/50; O2SAT 99
[2025-09-03 15:09] LABS: Glucose Urine UA Negative (Normal); Nitrate Urine Negative (Negative); Specific Gravity, Urine 1.012 (1.005-1.030)
[2025-09-03 15:12] LABS: Add Urine Microscopic? YES
--- NOTE | 2025-09-03 15:20 | CTR_ITS ---
PROCEDURE INFORMATION: Exam: CT Abdomen And Pelvis Without Contrast Exam date and time: 09/03/2025 3:35 PM Age: 45 years old Clinical indication: Pain; Other: Low back; Additional info: Low back pain, suprapubic/lower abdominal pain TECHNIQUE: Imaging protocol: Computed tomography of the abdomen and pelvis without contrast. Radiation optimization: All CT scans at this facility use at least one of these dose optimization techniques: automated exposure control; mA and/or kV adjustment per patient size (includes targeted exams where dose is matched to clinical indication); or iterative reconstruction. COMPARISON: CT abdomen pelvis w con* [id number] 07/14/2024 1:52 PM RADIATION DOSE METRICS: Total DLP (mGy-cm): 520.33 FINDINGS: Lungs: Visualized lung bases are clear. Liver: Unremarkable. Gallbladder and biliary ducts: Surgically absent. No significant biliary ductal dilatation. Pancreas: Unremarkable. Spleen: Unremarkable. Adrenal glands: Unremarkable. Kidneys and ureters: No renal or ureteral calculi are detected. No significant hydronephrosis. Stomach and bowel: Unremarkable. Bowel loops are normal in caliber. No evidence for obstruction. No significant mucosal thickening. Appendix: Seen medial to the cecum and normal in caliber. There is mild hyperdense material within the appendix which could be related to dense ingested material such as Pepto-Bismol. An appendicolith cannot be excluded. No surrounding inflammation to suggest acute appendicitis. Intraperitoneal space: Unremarkable. No free air. No signficant fluid collection. Vasculature: The abdominal aorta is normal in caliber. No abdominal aortic aneurysm. Lymph nodes: Unremarkable. No enlarged lymph nodes. Urinary bladder: Unremarkable as visualized. Reproductive: The uterus is absent. There is a 3.9 x 3.7 x 4.5 cm structure in the left adnexa likely representing the left ovary. The right ovary measures 2.5 x 2.3 x 2.8 cm and is unremarkable in appearance. Bones/joints: Intact. No acute fracture. There are degenerative changes involving the lower lumbar spine with posterior disc bulges at L4-L5 and L5-S1. Unilateral left pars defect is again noted at L5. Soft tissues: Unremarkable. CT/CT kidney stone [id number] IMPRESSION: 1. No acute findings. 2. Status post hysterectomy since the prior study. 3. Ovoid 3.9 x 3.7 x 4.5 cm structure in the left adnexa, likely representing the left ovary. Pelvic ultrasound may be helpful to evaluate for adnexal mass. 4. Mild degenerative disc disease and spondylosis involving the lumbar spine with disc bulges at L4-L5 and L5-S1. If clinically indicated, MRI may be helpful for further evaluation.
[2025-09-03 16:14] VITALS: BP 135/61; O2SAT 99
[2025-09-03] MEDS: HYDROcodone-acetaminophen 5-325 mg Tablet 1 TAB PO (16:26)
== END 2025-09-03 16:36 | disposition home or self-care (01) ==
PROVIDERS: Emergency Provider Physician Assistant; PCP Family Medicine
DX: R10.9 Unspecified abdominal pain (principal); M54.50 Low back pain, unspecified; Z72.0 Tobacco use
CPT/HCPCS: 36415; 74176; 80053; 81001; 84703; 85025; 99284; J9999